=== PATIENT | male | born 1960 | race Caucasian/White ===

== ENCOUNTER 2016-04-01 10:56 | Inpatient (IN) | payer OTHER ==
[~2016-04-01] VITALS: Ht 165.1 cm; Wt 61.8 kg
[~2016-04-01 10:56] MED LIST: FLOMAX; NEXIUM
[2016-04-01 11:46] VITALS: Ht 165.1 cm; Wt 61.8 kg
[2016-04-01] MEDS ORDERED: PROPOFOL 20 ML ONE ×2 (12:13→13:11)
[2016-04-01] MEDS ORDERED: LIDOCAINE 2% (SDV) 5 ML INJ ONE (12:13)
[2016-04-01] MEDS ORDERED: MIDAZOLAM 1 MG/ML 2 ML INJ ONE (12:13)
[2016-04-01 12:21] VITALS: BP 104/70; PULSE 68; RESP 18
[2016-04-01 13:39] VITALS: BP 111/63; RESP 20
[2016-04-01] MEDS ORDERED: DEXTROSE 5%-0.45% NACL 1,000 ML IV SCH (14:27)
[2016-04-01] MEDS ORDERED: ACETAMINOPHEN 325 MG TAB PO PRN ×2 (14:30→17:30)
[2016-04-01] MEDS ORDERED: ONDANSETRON 4 MG INJ IV PRN (14:30)
[2016-04-01] MEDS ORDERED: NACL 0.9% 3 ML SYG IV SCH (14:30)
[2016-04-01] MEDS ORDERED: ACETAMINOPHEN 650 MG SUPP PR PRN (14:30)
--- NOTE | 2016-04-01 14:32 | QN ---
Documentation Comment S/P EGD MALNUTRITION PUD WT LOSS PLAN PER ORDER LYNETTE YANEZ MD Apr 01, 2016 14:32
--- NOTE | 2016-04-01 16:06 | HP ---
DATE OF ADMISSION: 04/01/2016 HISTORY OF PRESENT ILLNESS: Mr. Heath is a young male who has a history of dyspepsia, who presen mj through the GI lab after an EGD. The patient had peptic ulcer disease, gastric outlet possible obstruction, and the patient was instructed to be admitted per Dr. Easley. The patient denies any hematemesis or melena. Complaining of weight loss, poor appetite. PAST MEDICAL HISTORY: Negative for diabetes or hypertension. ALLERGIES: NEGATIVE. FAMILY HISTORY: Negative. SOCIAL HISTORY: Positive for smoking. Ex-ETOH user. MEDICATIONS AT HOME: Stomach medicine, does not know the name. REVIEW OF SYSTEMS: HEENT: Unremarkable. RESPIRATORY: Unremarkable. CARDIOVASCULAR: Unremarkable. ABDOMEN: As mentioned above. EXTREMITIES: Unremarkable. CENTRAL NERVOUS SYSTEM: Unremarkable. PHYSICAL EXAMINATION: GENERAL: Pale looking male, awake, alert. VITAL SIGNS: Stable. HEAD: Atraumatic, normocephalic. Pupils are equal, reactive to light. NECK: Supple. No JVD. LUNGS: Clear. CARDIOVASCULAR: S1, S2 normal. ABDOMEN: Soft, nontender. Bowel sounds present. No palpable mass or hepatosplenomegaly. No guard ing or rebound tenderness. EXTREMITIES: There is no cyanosis, clubbing, or edema. CENTRAL NERVOUS SYSTEM: The patient is awake, alert. No deficits. IMPRESSION: The patient has: 1. Peptic ulcer disease. 2. Gastric outlet obstruction. 3. Rule out malignancy. 4. Malnutrition. 5. Status post EGD and colonoscopy. 6. Anemia. PLAN: Admit the patient. IV fluid and PPI. CT of the abdomen. GI followup. Further recommendati ons will be made. Dictated By: LYNETTE YANEZ MD BS/NTS Conf#: [id number] DID#: [id number]
[2016-04-01 16:30] VITALS: BP 162/79; PULSE 63; RESP 18
[2016-04-01 16:58] LABS: BASOPHIL # 0.1 10^3/ul (0.0-0.1); BASOPHILS % 0.7 % (0.0-2.0); EOSINOPHILS # 0.3 10^3/ul (0.0-0.5); EOSINOPHILS % 3.4 % (0.0-7.0); HEMATOCRIT 39.4 % (42.0-52.0); HEMOGLOBIN 13.2 g/dl (14.0-18.0); LYMPHOCYTES # 3.4 10^3/ul (0.8-2.9); LYMPHOCYTES % 37.5 % (15.0-51.0); MEAN CORPUSCULAR HEMOGLOBIN 30.6 pg (29.0-33.0); MEAN CORPUSCULAR HGB CONC 33.6 g/dl (32.0-37.0); MEAN CORPUSCULAR VOLUME 91.2 fl (82.0-101.0); MEAN PLATELET VOLUME 8.6 fl (7.4-10.4); MONOCYTE # 0.9 10^3/ul (0.3-0.9); MONOCYTES % 9.9 % (0.0-11.0); NEUTROPHIL # 4.4 10^3/ul (1.6-7.5); NEUTROPHILS % 48.5 % (39.0-77.0); PLATELET COUNT 280 10^3/UL (140-440); RED BLOOD COUNT 4.33 10^6/ul (4.70-6.10); RED CELL DISTRIBUTION WIDTH 13.5 % (11.5-14.5)
[2016-04-01 17:01] LABS: CONDITION 1
[2016-04-01 17:08] LABS: ALBUMIN 3.7 g/dl (3.3-4.9); POTASSIUM 4.6 mmol/L (3.5-5.1)
[2016-04-01 17:10] LABS: CREATININE 0.77 mg/dl (0.61-1.24)
[2016-04-01 17:11] LABS: ALBUMIN/GLOBULIN RATIO 1.05; BILIRUBIN,INDIRECT 0.2 mg/dl (0-1.1); BILIRUBIN,TOTAL 0.2 mg/dl (0.2-1.3); CALCIUM 9.3 mg/dl (8.4-10.2); TOTAL PROTEIN 7.2 g/dl (6.1-8.1)
[2016-04-01] MEDS: morphine 2 MG INJ IV PRN (17:37)
[2016-04-01] MEDS: DEXTROSE 5%-0.9% NACL 1,000 ML IV SCH (17:41)
[2016-04-01] MEDS ORDERED: SOD CHLORIDE 0.9% 100 ML ONE (17:48)
[2016-04-01] MEDS ORDERED: IOHEXOL 300MG/ML 150 ML BTL ONE (17:48)
--- NOTE | 2016-04-01 18:23 | RADRPT ---
PROCEDURE: CT Abdomen and Pelvis with contrast. CLINICAL INDICATION: Abdominal pain TECHNIQUE: CT scan of the abdomen and pelvis with contrast was performed on a multidetector high-r esolution CT scanner. Coronal and sagittal reformatted images were obtained from the axial source im ages. Images were reviewed on a high-resolution PACS workstation. 80 cc of Isovue 300 iodinated cont rast was administered intravenously without reported complication. The total exam CTDI equals 7 mGy and the total exam DLP equals 397 mGy-cm. One or more of the following dose reduction techniques w ere used: Automated exposure control, Adjustment of the mA and/or kV according to patient size, and/ or use of iterative reconstruction technique. COMPARISON: Correlation upper GI series 01/25/2016 FINDINGS: The lung bases are clear. Distension of the stomach with focal narrowing at the gastric antrum/pylorus. No focal hepatic mass is identified. There is mild intrahepatic biliary dilatation. The caliber of the common bile duct at the pancreatic head is within normal limits. Numerous prominent gastrohepat ic and peripancreatic lymph nodes are seen. No focal pericholecystic inflammatory changes. No hydronephrosis. No obstructing renal stone. No small bowel obstruction. Normal-caliber appendix. No significant retroperitoneal lymphadenopathy or evidence of pneumoperitoneum. Small amount of lower abdominal ascites seen. Aortoiliac atherosclerosis. Indeterminate sclerotic changes to the superior end plates of the lumbar spine are seen most notably at L2. IMPRESSION: Distension of the stomach with focal narrowing at the gastric antrum/pylorus. This could be related to pylorospasm or gastritis, however, an underlying mass lesion cannot be excluded. Recommend correl ation with endoscopy. Numerous prominent gastrohepatic and peripancreatic lymph nodes may be reactive or may represent nod al spread of disease. Sclerotic changes to the superior end plates of the lumbar spine are seen most notably at L2. Small amount of lower abdominal ascites. Mild intrahepatic biliary dilatation with normal tapering of the common bile duct. Consider correla tion with bilirbuin values. RPTAT: AA .Valentino Li MD, Date Time Electronically viewed and signed by .Valentino Li MD, on 04/01/2016 18:22 .T/
[2016-04-01 19:23] VITALS: BP 121/78; RESP 19
[2016-04-01 23:43] VITALS: BP 116/57; RESP 19
[2016-04-02] MEDS: DEXTROSE 5%-0.9% NACL 1,000 ML IV SCH ×3 (03:00→17:33)
[2016-04-02] MEDS: morphine 2 MG INJ IV PRN ×4 (05:01→20:42)
[2016-04-02] MEDS: PANTOPRAZOLE 40 MG INJ IV SCH (05:23)
--- NOTE | 2016-04-02 05:36 | GILP ---
DATE OF PROCEDURE: 04/01/2016 PREOPERATIVE DIAGNOSIS: Severe abdominal pain with severe weight loss, nausea, vomiting, and occult bleeding. PROCEDURE DONE: Esophagogastroduodenoscopy and biopsy. ANESTHESIOLOGIST: Dr. Alejandrina Yusuf POSTOPERATIVE DIAGNOSIS: 1. Retained food particles in the stomach. 2. Two large ulcers instructing the prepyloric area with marked edema and easy friability; infiltrating CA suspected. DESCRIPTION OF THE PROCEDURE: The patient was put in left lateral decubitus after obtaining informed consent, was sedated, monitored by the anesthesiologist. We very carefully advanced an Olympus video upper endoscope into the esophagus, stomach, and entered only up to the pylorus due to blockade with 2 large gastric ulcers and retained food particles in the stomach. These ulcers were almost 2 x 1.5 cm, two of them obstructing at the pyloric channel area in the prepyloric area. With the everted margin friable and deep ulcers, it looks like a CA of the stomach. Biopsies were done. Unable to enter the duodenum due to retained food particles and fundus could not be examined. Examination of esophagus was unremarkable. Dear Dr. Chuy Choudhury: The patient has gastric outlet obstruction with 2 large ulcers, possibly even CA. I recommend admission and TPN because he is losing weight. Consider aggressive PPI. Await for biopsy report. He may need endoscopic ultrasound prior to surgery. Meanwhile, a CAT scan will be requested and I may consider surgical consult also. Dictated By: MICHELLE VITALE Conf#: [id number] DID#: [id number] CC: Chuy Choudhury;*EndCC* MTDD
--- NOTE | 2016-04-02 05:40 | GILP ---
DATE OF PROCEDURE: PREOPERATIVE DIAGNOSIS: Weight loss, anemia, and abdominal pain. Upper endoscopy showed possible ga stric CA with 2 ulcers now proceeding with colonoscopy. POSTOPERATIVE DIAGNOSIS: Four small polyps in the rectum, biopsied. They are benign looking. DESCRIPTION OF PROCEDURE: The patient was put in the left lateral decubitus after obtaining informe d consent after EGD. Monitoring and continued sedation was done by Dr. Alejandrina Yusuf. Rectal exam done which was unremarkable. An Olympus video colonoscope was advanced all the way to t he cecum. Ileocecal valve, cecum and appendiceal opening identified. Photography done. Cecum, asc ending colon, transverse colon normal. Descending colon and sigmoid colon, very few diverticula in the rectum. Four small polyps, hyperplastic type noted. These were biopsied and removed and sent t o histopathology. Then the scope was withdrawn. Patient had no complication. Dear Dr. Chuy Choudhury: Because of his weight loss, gastric outlet obstruction, suspected CA, I wou ld recommend TPN and admit him while we are staging him with CT scan. Recommend surgical opinion a nd endoscopic ultrasound prior to surgery. Dictated By: MICHELLE VITALE Conf#: [id number] DID#: [id number] CC: Chuy Choudhury;*EndCC*
[2016-04-02] MEDS ORDERED: PANTOPRAZOLE 40 MG INJ IV SCH (06:00)
[2016-04-02 07:32] VITALS: BP 134/80; RESP 16
--- NOTE | 2016-04-02 19:07 | PN ---
Date/Time of Note Date/Time of Note DATE: 04/02/16 TIME: 19:06 Assessment/Plan VTE Prophylaxis VTE Prophylaxis Intervention: other Lines/Catheters IV [facility] Type [facility] Peripheral IV Urinary Cath still in place: No Assessment/Plan Chief Complaint/Hosp Course IMPRESSION: The patient has: 1. Peptic ulcer disease. 2. Gastric outlet obstruction. 3. Rule out malignancy. 4. Malnutrition. 5. Status post EGD and colonoscopy. 6. Anemia. plan dr wall called Problems: Subjective 24 Hr Interval Summary Respiratory: no complaints Cardiovascular: no complaints Gastrointestinal: decreased appetite, No nausea Exam/Review of Systems Vital Signs Vitals Vital Signs Date Time Temp Pulse Resp B/P Pulse Ox O2 Delivery O2 Flow Rate FiO2 04/02/16 07:32 98.2 79 16 134/80 98 04/01/16 16:30 Room Air Intake and Output 04/01/16 04/01/16 04/02/16 15:00 23:00 07:00 Intake Total 1680 ml Balance 1680 ml Exam Neck: supple Respiratory: clear to auscultation Cardiovascular: regular rate and rhythm Gastrointestinal: soft Musculoskeletal: nl extremities to inspection Extremities: normal pulses Results Result Diagram: 04/01/16 1645 04/01/16 1645 Medications Medications Current Medications Ondansetron HCl (Zofran Inj) 4 mg Q6H PRN IV NAUSEA AND/OR VOMITING; Start at 14:30 Acetaminophen 650 mg 650 mg Q6H PRN [place] PAIN LEVEL 1-3 OR FEVER; Start 04/01/16 at 14:30 Dextrose/Sodium Chloride (D5-NS) 1,000 ml @ 100 mls/hr Q10H IV Last administered on 04/02/16 17:33; Admin Dose 100 MLS/HR; Start 04/01/16 at 17:30 Pantoprazole (Protonix Iv) 40 mg DAILY@06 IV Last administered on 04/02/16 05: 23; Admin Dose 40 MG; Start 04/02/16 at 06:00 Acetaminophen (Tylenol Tab) 650 mg Q6H PRN PO PAIN AND OR ELEVATED TEMP; Start 04/01/16 at 17:30 Morphine Sulfate (morphine) 2 mg Q4H PRN IV PAIN Last administered on 15:48; Admin Dose 2 MG; Start 04/01/16 at 17:30 LYNETTE YANEZ MD Apr 02, 2016 19:07
[2016-04-02 19:10] VITALS: BP 135/74; RESP 20
[2016-04-03] MEDS: morphine 2 MG INJ IV PRN ×4 (03:52→20:55)
[2016-04-03] MEDS: DEXTROSE 5%-0.9% NACL 1,000 ML IV SCH ×2 (03:54→15:14)
[2016-04-03] MEDS: PANTOPRAZOLE 40 MG INJ IV SCH (05:42)
[2016-04-03 07:53] VITALS: BP 110/77; RESP 18
--- NOTE | 2016-04-03 16:05 | PN ---
Date/Time of Note Date/Time of Note DATE: 04/03/16 TIME: 16:04 Assessment/Plan VTE Prophylaxis VTE Prophylaxis Intervention: other Lines/Catheters IV [facility] Type (from [facility]): Peripheral IV Urinary Cath still in place: No Assessment/Plan Chief Complaint/Hosp Course IMPRESSION: The patient has: 1. Peptic ulcer disease. 2. Gastric outlet obstruction. 3. Rule out malignancy. 4. Malnutrition. 5. Status post EGD and colonoscopy. 6. Anemia. plan dr wall TO F/U PO DIET Problems: Subjective 24 Hr Interval Summary Respiratory: no complaints Cardiovascular: no complaints Exam/Review of Systems Vital Signs Vitals Vital Signs Date Time Temp Pulse Resp B/P Pulse Ox O2 Delivery O2 Flow Rate FiO2 04/03/16 07:53 98.0 61 18 110/77 98 04/01/16 16:30 Room Air Intake and Output 04/02/16 04/02/16 04/03/16 15:00 23:00 07:00 Intake Total 2140 ml 1700 ml Balance 2140 ml 1700 ml Exam Neck: supple Respiratory: clear to auscultation Cardiovascular: regular rate and rhythm Gastrointestinal: soft Results Result Diagram: 04/01/16 1645 04/01/16 1645 Medications Medications Current Medications Ondansetron HCl (Zofran Inj) 4 mg Q6H PRN IV NAUSEA AND/OR VOMITING Last administered on 04/03/16 12:21; Admin Dose 4 MG; Start 04/01/16 at 14:30 Acetaminophen 650 mg 650 mg Q6H PRN [place] PAIN LEVEL 1-3 OR FEVER; Start 04/01/16 at 14:30 Dextrose/Sodium Chloride (D5-NS) 1,000 ml @ 100 mls/hr Q10H IV Last administered on 04/03/16 15:14; Admin Dose 100 MLS/HR; Start 04/01/16 at 17:30 Pantoprazole (Protonix Iv) 40 mg DAILY@06 IV Last administered on 04/03/16 05: 42; Admin Dose 40 MG; Start 04/02/16 at 06:00 Acetaminophen (Tylenol Tab) 650 mg Q6H PRN PO PAIN AND OR ELEVATED TEMP; Start 04/01/16 at 17:30 Morphine Sulfate (morphine) 2 mg Q4H PRN IV PAIN Last administered on 12:21; Admin Dose 2 MG; Start 04/01/16 at 17:30 LYNETTE YANEZ MD Apr 03, 2016 16:05
[2016-04-03 19:41] VITALS: BP 124/73; RESP 20
[2016-04-04] MEDS: DEXTROSE 5%-0.9% NACL 1,000 ML IV SCH ×2 (01:30→14:34)
[2016-04-04] MEDS: morphine 2 MG INJ IV PRN ×2 (01:35→07:06)
[2016-04-04] MEDS: PANTOPRAZOLE 40 MG INJ IV SCH (05:53)
[2016-04-04 08:30] VITALS: BP 104/60; RESP 18
--- NOTE | 2016-04-04 16:35 | CONS ---
Date/Time of Note Date/Time of Note DATE: 04/04/16 TIME: 16:30 Assessment/Plan Assessment/Plan Chief Complaint/Hosp Course 55 yo male who presents with gastric outlet obstruction who now has evidence of gastric adenocarcinoma -proceed with surgery. will likely need partial gastrectomy -will need chemo/ rads postop per Cha regimen -f/u path -out patient PET CT Problems: Consultation Date/Type/Reason Admit Date/Time Apr 01, 2016 at 14:48 Date of Consultation: Apr 04, 2016 Type of Consultation: oncology Reason for Consultation gastric cancer Referring Provider: LYNETTE YANEZ Hx of Present Illness 55 yo male with history of dyspepsia, who presented through the GI lab after an EGD. The patient had peptic ulcer disease, gastric outlet possible obstruction , and the patient was instructed to be admitted per Dr. Easley. The patient denies any hematemesis or melena. Complaining of weight loss, poor appetite. EGD revealed gastric outlet obstruction with 2 large ulcers. Prelilm path is consistent with gastric adenocarcinoma. Respiratory: no complaints Cardiovascular: no complaints Gastrointestinal: decreased appetite, No nausea Genitourinary: no complaints Musculoskeletal: no complaints Skin: no complaints Neurologic: no complaints Endocrine: no complaints Past Medical History Medical History: no pertinent history Past Surgical History Past Surgical Hx: no surgical history Family History Significant Family History: other Social History Smoking Status: Current every day smoker Drug Use: none Exam/Review of Systems Vital Signs Vitals Vital Signs Date Time Temp Pulse Resp B/P Pulse Ox O2 Delivery O2 Flow Rate FiO2 04/04/16 08:30 97.8 60 18 104/60 93 04/01/16 16:30 Room Air Intake and Output 04/03/16 04/03/16 04/04/16 15:00 23:00 07:00 Intake Total 2020 ml 1920 ml Output Total 800 ml Balance 2020 ml 1120 ml Exam Constitutional: alert, oriented Psych: no complaints Head: atraumatic, normocephalic Eyes: nl conjunctiva ENMT: nl external ears & nose, nl lips & teeth Neck: non-tender, supple Respiratory: clear to auscultation, normal air movement Cardiovascular: nl pulses, regular rate and rhythm Gastrointestinal: soft Musculoskeletal: nl extremities to inspection, nl gait and stance Extremities: normal pulses Results Result Diagram: 04/01/16 1645 04/01/16 1645 Medications Medications Current Medications Ondansetron HCl (Zofran Inj) 4 mg Q6H PRN IV NAUSEA AND/OR VOMITING Last administered on 04/03/16 12:21; Admin Dose 4 MG; Start 04/01/16 at 14:30 Acetaminophen 650 mg 650 mg Q6H PRN [place] PAIN LEVEL 1-3 OR FEVER; Start 04/01/16 at 14:30 Dextrose/Sodium Chloride (D5-NS) 1,000 ml @ 100 mls/hr Q10H IV Last administered on 04/04/16 01:30; Admin Dose 100 MLS/HR; Start 04/01/16 at 17:30 Pantoprazole (Protonix Iv) 40 mg DAILY@06 IV Last administered on 04/04/16 05: 53; Admin Dose 40 MG; Start 04/02/16 at 06:00 Acetaminophen (Tylenol Tab) 650 mg Q6H PRN PO PAIN AND OR ELEVATED TEMP; Start 04/01/16 at 17:30 Morphine Sulfate (morphine) 2 mg Q4H PRN IV PAIN Last administered on 07:06; Admin Dose 2 MG; Start 04/01/16 at 17:30 SUZY BOWENS M.D. Apr 04, 2016 16:35
--- NOTE | 2016-04-04 22:07 | PN ---
DATE: 04/04/[address] Sin Yanez and Dr. Alberto Choudhury: This 55-year-old male was diagnosed to have an obstructing ulcerated mass at the prepyloric area. U gil biopsy, it showed adenocarcinoma. As it was obstructing, we requested a surgical opinion. Dr. Witt saw the patient and he is planning to do the surgery as outpatient, as the patient is intend ing also to go home, to stage further with endoscopic ultrasound. That particular scope is not avai lable at this institution. Thus, I request an authorization for approval to a different center prio r to surgery. Also, oncological opinion may be entertained in between. I have explained to the family in detail. The patient's and his sister were present. They ask ed many questions. I have answered all of them to the best of my knowledge. I have advised that it is best for him to go for surgery, as it is almost obstructing lesion. It may not heal, although _ ___ Nexium may help, but with adenocarcinoma being present, it may not. I also recommend, because o f his weight loss, to increase his food intake like Boost, instant breakfast, also protein shakes. Follow up as outpatient within [address] Witt and also my office will be in touch with him as soon as he is approved for endoscopic ultrasound. Dr. Sin Yanez, also may be requesting oncol ogy opinion on this patient. See the CAT scan reports also. I have spoken with the pathologist, Dr Deneen Rose. The patient's family wants another opinion, which I have no objection, I have told them. Dictated By: MICHELLE VITALE Conf#: [id number] DID#: [id number] CC: SIN YANEZ MD; Alberto Choudhury;*EndCC*
--- NOTE | 2016-04-04 22:56 | QN ---
Documentation Comment [id number] LYNETTE YANEZ MD Apr 04, 2016 22:55
--- NOTE | 2016-04-05 02:25 | PN ---
Date/Time of Note Date/Time of Note DATE: 04/03/16 TIME: 10:14 Assessment/Plan Lines/Catheters IV Catheter Type (from [facility]): Saline Lock Diaz in Place (from [facility]): No Assessment/Plan Chief Complaint/Hosp Course 1. Prepyloric large ulcerations with PUD concerning for malignancy. Bx obtained & pending. -await path -ppi/carafate -liquid diet 2. Unintentional weight loss concerning for malignancy 2nd above -nutritional optimization -treatment & w/u as above 3. Anemia 2nd above -as above 4. Smoker, hx etoh use, current drug use -highly encouraged to stop use of noxious substances 5. Abdominal (gastro-hepatic & eliot-pancreatic) lymphadenopathy 2nd to above -w/u & tx as above -if this is a malignancy, pt wud need a PET scan & endoscopic US & eventually wud benefit from demar-adjuvant chemo tx followed by distal gastrectomy Thank you, Late entry 04/03 Dictation # [id number] Problems: Subjective 24 Hr Interval Summary No n/v. No f/c. No cp/so. No cough. No laurent/dizziness/visual or neuro changes. No pyuria. No bloating. Wants to eat more and go home. Bowel function. Exam/Review of Systems Vital Signs Vitals Vital Signs Date Time Temp Pulse Resp B/P Pulse Ox O2 Delivery O2 Flow Rate FiO2 04/04/16 08:30 97.8 60 18 104/60 93 04/01/16 16:30 Room Air Intake and Output 04/04/16 04/04/16 04/05/16 15:00 23:00 07:00 Output Total 440 ml Balance -440 ml Exam Constitutional: alert, oriented, No distress Psych: nl mood/affect, No anxiety Head: atraumatic, normocephalic Eyes: EOMI, PERRL, nl conjunctiva, No icteric ENMT: mucosa pink and moist, nl external ears & nose Neck: non-tender, supple Respiratory: normal air movement, No congested cough, No labored breathing Cardiovascular: regular rate and rhythm, No edema Gastrointestinal: non-tender, soft, No distended, No rebound or guarding Musculoskeletal: nl extremities to inspection, nl gait and stance, No joint tenderness Extremities: normal pulses, No calf tenderness Neurological: nl mental status, nl speech, nl strength Skin: nl turgor, No diaphoresis, No rash or lesions Lymph: nl lymph nodes Results Result Diagram: 04/01/16 1645 04/01/16 1645 RICK JADE MD Apr 05, 2016 02:24
--- NOTE | 2016-04-05 03:37 | PN ---
Date/Time of Note Date/Time of Note DATE: 04/04/16 TIME: 15:32 Assessment/Plan Lines/Catheters IV Catheter Type (from [facility] [place]): Saline Lock Diaz in Place (from [facility] [place]): No Assessment/Plan Chief Complaint/Hosp Course 1. Prepyloric large ulcerations with malignancy proven on bx -ppi/carafate -liquid diet --PET scan & endoscopic US as outpt > eventually wud benefit from demar-adjuvant chemo tx followed by distal gastrectomy. Patient is going home. 2. Unintentional weight loss 2nd malignancy -nutritional optimization -treatment & w/u as above 3. Anemia 2nd above -as above 4. Smoker, hx etoh use, current drug use -highly encouraged to stop use of noxious substances 5. Abdominal (gastro-hepatic & eliot-pancreatic) lymphadenopathy 2nd to above -w/u & tx as above -PET scan & endoscopic US as outpt > eventually wud benefit from demar-adjuvant chemo tx followed by distal gastrectomy Thank you, Late entry 04/04 Problems: Subjective 24 Hr Interval Summary Path with carcinoma. No n/v. No f/c. No cp/so. No cough. No laurent/dizziness/ visual or neuro changes. No pyuria. No bloating. Wants to go home. Bowel function. Exam/Review of Systems Vital Signs Vitals Vital Signs Date Time Temp Pulse Resp B/P Pulse Ox O2 Delivery O2 Flow Rate FiO2 04/04/16 08:30 97.8 60 18 104/60 93 04/01/16 16:30 Room Air Intake and Output 04/04/16 04/04/16 04/05/16 15:00 23:00 07:00 Output Total 440 ml Balance -440 ml Exam Free Text/Dictation Constitutional: alert, oriented, No distress Psych: nl mood/affect, No anxiety Head: atraumatic, normocephalic Eyes: EOMI, PERRL, nl conjunctiva, No icteric ENMT: mucosa pink and moist, nl external ears & nose Neck: non-tender, supple Respiratory: normal air movement, No congested cough, No labored breathing Cardiovascular: regular rate and rhythm, No edema Gastrointestinal: non-tender, soft, No distended, No rebound or guarding Musculoskeletal: nl extremities to inspection, nl gait and stance, No joint tenderness Extremities: normal pulses, No calf tenderness Neurological: nl mental status, nl speech, nl strength Skin: nl turgor, No diaphoresis, No rash or lesions Lymph: nl lymph nodes Results Result Diagram: 04/01/16 1645 04/01/16 1645 RICK JADE MD Apr 05, 2016 03:36
--- NOTE | 2016-04-05 08:14 | CONS ---
DATE OF ADMISSION: 04/01/2016 DATE OF CONSULTATION: 04/02/2016 CONSULTATIONS: Surgical REFERRING PHYSICIAN: LYNETTE YANEZ MD OTHER PHYSICIAN INVOLVED: Lester Easley M.D. CHIEF COMPLAINT: 1. Partial gastric outlet obstruction. 2. Unintentional weight loss. 3. Two large prepyloric ulcers with marked edema, possible adenocarcinoma. 4. Anemia. HISTORY OF PRESENT ILLNESS: The patient is a 55-year-old male with history of peptic ulcer disease t hat has been persistent symptomatology and was referred by Dr. Easley for admission and further ev aluation. The patient has been losing weight unintentionally. He has poor appetite. He denies any nausea or vomiting, no melena, no hematochezia, and no hematemesis, no hemoptysis. No abnormal ma sses. No fevers or chills. Patient is a smoker and previous heavy drinking. He also uses heroin a t times. Patient underwent an EGD which identified retained food in the stomach with 2 large ulcers obstructing the prepyloric area with marked edema and friability suspecting infiltrating cancer. T he ulcers were almost 2 x 1.5 cm. The patient also had a colonoscopy and identified to have 4 small polyps in the rectum. Subsequent to those procedures, he was admitted for further care. Surgical consultation was obtained for further evaluation and treatment as well. PAST MEDICAL HISTORY: 1. Unintentional weight loss. 2. Peptic ulcer disease. 3. Two large prepyloric ulcerations. 4. Partial gastric outlet obstruction. 5. Anemia. 6. Rectal polyps. 7. Cigarette smoker. 8. Previous heavy alcohol drinker. 9. Drug use, heroin. 10. Gastrohepatic and peripancreatic lymphadenopathy. 11. Sclerotic changes of the superior endplate of the lumbar spine. 12. Abdominal ascites, small amount. PAST SURGICAL HISTORY: Denies. MEDICATIONS: As per MAR. ALLERGIES: As per chart. SOCIAL HISTORY: Smokes about 10 cigarettes per day for many years. Previous heavy alcohol use. Cu rrent drug use with heroin. Patient is . FAMILY HISTORY: Denies any history of cancer. REVIEW OF SYSTEMS: As per HPI. A 12-point review of systems negative as addressed above. PHYSICAL EXAMINATION: VITAL SIGNS: Temperature is 98.2, pulse 79, blood pressure 134/80, saturating 98%. GENERAL: No acute distress, pleasant. HEENT: Pupils equal, reactive. No scleral icterus. Mucous membranes are moist. NECK: Supple, no JVD. No crepitus. PULMONARY: Normal respiratory effort. No wheezing. HEART: S1, S2 present. ABDOMEN: Soft, nontender, no rebound, no guarding, no umbilical lymphadenopathy or lesions. EXTREMITIES: No edema. VASCULAR: Capillary refill is less than 2 seconds. NEUROLOGIC: Alert, oriented, moves all 4 extremities grossly. LYMPHATICS: No palpable cervical, supraclavicular, axillary or inguinal lymph nodes. LABORATORY DATA: WBC is 9, H and H 13/39, platelets 280, neutrophils 48%. Chemistry and LFTs are w ithin normal. Albumin is 3.7. RADIOGRAPHIC: CT abdomen and pelvic identified distention of the stomach with focal narrowing of th e gastric antrum/pylorus. This could be related to pylorospasm or gastritis however, an underlying mass lesion cannot be excluded. Numerous prominent gastrohepatic and peripancreatic lymph nodes may be reactive or may represent kai spread of disease. Sclerotic changes to the superior endplate o f lumbar spine are seen most notably at L2. Small amount of lower abdominal ascites. Mild intrahep atic biliary dilatation with normal tapering of the common bile duct. ASSESSMENT AND PLAN: Mr. Vin Heath is a 55-year-old male. 1. Pyloric large ulcerations with peptic ulcer disease concerning for malignancy. Biopsy were obta ined and are pending. We will await pathology. Continue PPIs and Carafate. Continue liquid diet. 2. Unintentional weight loss. Once again concerning for malignancy secondary to above. Encourage nutritional optimization and treatment. Workup as above. 3. Anemia secondary to above. Treatment as above. 4. Smoker. History of alcohol use and current drug use. The patient is highly encouraged to stop use of noxious substances. 5. Abdominal (gastrohepatic and peripancreatic) lymphadenopathy) secondary to #1. Workup and treat ment as above. If this is a malignancy, the patient would need a PET scan and endoscopic ultrasound and eventually would benefit from neoadjuvant chemotherapy followed by distal gastrectomy. Thank you very much for consulting me in this patient's care. Dictated By: RICK CABRERA/PRATIMA Conf#: [id number] DID#: [id number]
--- NOTE | 2016-04-05 11:42 | DS ---
DATE OF ADMISSION: 04/01/2016 DATE OF DISCHARGE: 04/04/2016 HOSPITAL COURSE: The patient is a 55-year-old male who was admitted after EGD showed the patient laurent d a gastric ulcer and mass. The patient's biopsy came back positive for adenocarcinoma. The patien t was seen by Dr. Babar Witt and in consultation, but patient did not want to wait for an y further plan and left the hospital against medical advice. DISCHARGE DIAGNOSES: At the time of the discharge, patient diagnoses includes: 1. Patient has adenocarcinoma, status post esophagogastroduodenoscopy and colonoscopy. 2. Gastric mass, ulcer, and gastritis. 3. The patient has anemia. DISPOSITION: The patient left the hospital against medical advice. Dictated By: LYNETTE WATKINS/NTS Conf#: [id number] DID#: [id number]
== END 2016-04-04 16:24 | disposition left against medical advice (07) | DRG 375 ==
LOC: GIL 10:56 → MS1 14:48 → GIL 15:38 → MS1 17:16
PROVIDERS: ADMIT Internal Medicine Nephrology; ATTEND Internal Medicine Nephrology
PROC: 0DB78ZX Excision of Stomach, Pylorus, Via Natural or Artificial Opening Endoscopic, Diagnostic (ICD-10-PCS; principal; 2016-04-02)
PROC: 0DBP8ZX Excision of Rectum, Via Natural or Artificial Opening Endoscopic, Diagnostic (ICD-10-PCS; 2016-04-02)
DX: C16.4 Malignant neoplasm of pylorus (principal); K31.1 Adult hypertrophic pyloric stenosis; E46 Unspecified protein-calorie malnutrition; K27.9 Peptic ulcer, site unspecified, unspecified as acute or chronic, without hemorrhage or perforation; D64.9 Anemia, unspecified; F10.21 Alcohol dependence, in remission; Z68.22 Body mass index [BMI] 22.0-22.9, adult; R63.4 Abnormal weight loss; Z72.0 Tobacco use; K62.1 Rectal polyp
CPT/HCPCS: 74177; 80053; 85025; 88305; 88312; C9113; J2250; J2270; J2405; J7042; Q9967

== ENCOUNTER 2016-05-09 10:09 | Inpatient (IN) | payer OTHER ==
[2016-05-06 14:09] VITALS: BMI 24.8
[~2016-05-09] VITALS: Ht 165.1 cm; Wt 64.2 kg
[2016-05-09] VITALS (29 sets, daily range): BP systolic 89–157; BP diastolic 62–92; PULSE 79–110; RESP 16–22; Ht 165.1 cm; Wt 64.2 kg
[~2016-05-09 10:09] MED LIST changes: -FLOMAX
[2016-05-09] MEDS ORDERED: SOD CHLORIDE 0.9% 1,000 ML IV SCH (11:30)
[2016-05-09] MEDS ORDERED: AMPICILLIN/SULB 3 GM/NS (PMX) 100 ML IVPB SCH (12:00)
--- NOTE | 2016-05-09 12:01 | RADRPT ---
PROCEDURE: XR Chest. CLINICAL INDICATION: Preoperative, gastric cancer TECHNIQUE: Single frontal view of the chest was obtained COMPARISON: None FINDINGS: The heart and mediastinum are within normal limits. The lungs are clear. There is no pleural effusion or pneumothorax. RPTAT: AA IMPRESSION: No acute disease. .Luis Colin MD, MD Date Time Electronically viewed and signed by .Luis Colin MD, on 05/09/2016 12:00 .S/
[2016-05-09 12:09] LABS: BASOPHILS % 0.5 % (0.0-2.0); EOSINOPHILS # 0.4 10^3/ul (0.0-0.5); EOSINOPHILS % 4.9 % (0.0-7.0); HEMATOCRIT 41.4 % (42.0-52.0); HEMOGLOBIN 13.7 g/dl (14.0-18.0); LYMPHOCYTES % 34.6 % (15.0-51.0); MEAN CORPUSCULAR HEMOGLOBIN 30.6 pg (29.0-33.0); MEAN CORPUSCULAR HGB CONC 33.2 g/dl (32.0-37.0); MEAN CORPUSCULAR VOLUME 92.3 fl (82.0-101.0); MEAN PLATELET VOLUME 10.1 fl (7.4-10.4); MONOCYTE # 0.9 10^3/ul (0.3-0.9); MONOCYTES % 10.1 % (0.0-11.0); NEUTROPHIL # 4.3 10^3/ul (1.6-7.5); NEUTROPHILS % 49.9 % (39.0-77.0); PLATELET COUNT 210 10^3/UL (140-440); RED BLOOD COUNT 4.49 10^6/ul (4.70-6.10); RED CELL DISTRIBUTION WIDTH 15.1 % (11.5-14.5); UNCORRECTED WBC 8.6 10^3/ul (4.8-10.8); WHITE BLOOD COUNT 8.6 10^3/ul (4.8-10.8)
[2016-05-09 12:10] LABS: CONDITION 1; LH ANALYZER COMMENTS 1
[2016-05-09 12:13] LABS: INR 0.99; PROTIME 13.1 Sec (12.2-14.2)
[2016-05-09 12:14] LABS: PARTIAL THROMBOPLASTIN TIME 30.9 Sec (25.0-35.0)
[2016-05-09 12:18] LABS: CREATININE 0.63 mg/dl (0.61-1.24); POTASSIUM 4.4 mmol/L (3.5-5.1)
[2016-05-09] MEDS ORDERED: ROCURONIUM 50 MG INJ ONE (14:08)
[2016-05-09] MEDS ORDERED: SUCCINYLCHOLINE CHLORIDE 100 MG/5 ML SYG IV ONE (14:08)
[2016-05-09] MEDS ORDERED: PROPOFOL 20 ML ONE (14:08)
[2016-05-09] MEDS ORDERED: ONDANSETRON 4 MG INJ ONE (14:09)
[2016-05-09] MEDS ORDERED: MIDAZOLAM 1 MG/ML 2 ML INJ ONE (14:09)
[2016-05-09] MEDS ORDERED: DEXAMETHASONE 4 MG/ML 1 ML INJ ONE (14:10)
[2016-05-09] MEDS ORDERED: LIDOCAINE 2% JELLY 5 ML ONE (14:22)
[2016-05-09] MEDS ORDERED: CEFAZOLIN 1 GM INJ ONE (14:32)
[2016-05-09] MEDS ORDERED: EPHEDrine SULFATE 50 MG/5 ML SYG IV PRN (15:30)
[2016-05-09] MEDS ORDERED: ONDANSETRON 4 MG INJ IV PRN (15:30)
[2016-05-09] MEDS ORDERED: HYDROmorphONE (0.2 MG/ML) 10ML SYG IV PRN ×2 (15:30)
[2016-05-09] MEDS ORDERED: ALBUTEROL 0.5% (NEB) 2.5 MG/0.5 ML AMP INH ONE (15:30)
[2016-05-09] MEDS ORDERED: MEPERIDINE 25 MG INJ IV PRN (15:30)
[2016-05-09] MEDS ORDERED: DIPHENHYDRAMINE 50 MG INJ IV PRN (15:30)
[2016-05-09] MEDS ORDERED: MIDAZOLAM 1 MG/ML 2 ML INJ IV PRN (15:30)
[2016-05-09] MEDS ORDERED: KETOROLAC 30 MG INJ IV ONE (15:30)
[2016-05-09] MEDS ORDERED: hydrALAzine 20 MG INJ IV PRN (15:30)
[2016-05-09] MEDS ORDERED: FENTAnyl 50 MCG/ML VIAL ONE (15:54)
[2016-05-09] MEDS ORDERED: GLYCOPYRROLATE 0.4 MG INJ ONE (16:17)
[2016-05-09] MEDS ORDERED: NEOSTIGMINE 3 MG/3 ML SYRINGE ONE (16:17)
[2016-05-09] MEDS ORDERED: hydrALAzine 20 MG INJ ONE (16:26)
[2016-05-09] MEDS ORDERED: ROPIVACAINE 0.5 % 30 ML VIAL ONE (16:34)
[2016-05-09] MEDS ORDERED: KETOROLAC 30 MG INJ ONE (16:35)
[2016-05-09] MEDS: HYDROmorphONE (0.2 MG/ML) 10ML SYG IV PRN ×3 (17:11→17:23)
[2016-05-09] MEDS: FENTAnyl 50 MCG/ML VIAL IV PRN ×4 (17:31→17:51)
--- NOTE | 2016-05-09 17:56 | OPR ---
DATE OF OPERATION: 05/09/2016 PREOPERATIVE DIAGNOSIS: Obstructing prepyloric gastric cancer. POSTOPERATIVE DIAGNOSIS: Obstructing prepyloric gastric cancer. OPERATION PERFORMED: Subtotal gastrectomy. ANESTHESIA: General. ANESTHESIOLOGIST: Quincy Castillo. SURGEON: Alexander Mixon MD LICENSED PLUMBER: Randall Rose MD INDICATIONS FOR PROCEDURE: The patient is a 55-year-old male who recently presented to my office wi th a diagnosis of a nearly obstructing pyloric cancer. He has lost several pounds of weight. He wa s counseled as to the need for surgery. Both he and his family were told that procedure would most likely be palliative due to the fact he was able to take any oral intake. They elected to proceed w the [facility] surgery. The patient consented and was scheduled for surgery. DESCRIPTION OF PROCEDURE: The patient was brought to the operating theater, placed under general en dotracheal tube anesthesia. The abdomen was shaved, prepped, and draped in usual sterile fashion. An upper midline incision was made from the left side of the xiphoid down around the left side of th e umbilicus. Subcutaneous tissue was dissected with cautery down to the anterior rectus sheath. Th e linea alba was incised and the abdomen was entered without difficulty. The fascial incision was e xtended for the length of the skin excision. The Bookwalter retractor was placed. Excellent exposu re was obtained. As obstructed, a very large prepyloric mass was identified. Mobilization of the s tomach then took place by entering the avascular plane between the greater omentum and the transvers e colon. In this fashion, the greater curvature was mobilized. Subsequently, the lesser sac was en tered and portions of the lesser sac were also divided using the LigaSure device. With the first pa rt of duodenum fully mobilized, the duodenum was transected using the contour TA stapler. Further m obilization of the stomach took place until suitable point of transection well above the antrum was identified. The stomach was then transected with JESISCA stapler. Specimen was removed and sent for pe rmanent pathologic analysis. Minimal bleeding of the staple line was controlled with cautery. The preparation for reanastomosis then took place. The ligament of Treitz was identified and a point ap proximately 35 cm beyond the ligament of Treitz, the jejunum was cleared of its mesentery and transe cted. A Esthela limb was then created by creating a jejunojejunostomy. This was done in standard fash ion by approximating the 2 appropriate pieces of bowel with 3-0 silk pop off sutures. Two enterotom ies were made and anastomosis was created with the JESSICA stapler. Staple line was inspected. Minimal bleeding was controlled with cautery. The anastomosis then completed with a TA stapler in a standa rd fashion. Attention was then directed to performing the gastrojejunostomy. The Esthela limb was brought in close approximation with the posterior aspect of the greater curvature, held in place with 2-0 silk sutur es. A gastrotomy and enterotomy was made. The anastomosis was then created with JESSICA stapler. Stap le line was inspected. Minimal bleeding was controlled with cautery. The NG tube was then brought through the anastomosis and the anastomosis was then completed with a TA stapler in a standard fashi on. Several reinforcing 2-0 silk sutures were placed to reinforce the anastomosis. At this point, the abdomen was irrigated. There was no evidence of ongoing bleeding. Lap, sponge, and instrument counts were correct. Bookwalter was removed and the abdomen was then closed with #1 looped PDS sutu res in running fashion and the skin was reapproximated with skin jana. The patient tolerated pro cedure well. The estimated blood loss was 250 mL. There were no complications and the patient was transported in stable condition to the recovery room. Dictated By: ALEXANDER MONTESINOS/PRATIMA Conf#: [id number] DID#: [id number]
[2016-05-09] MEDS: HYDROmorphONE 0.2 MG/ML PCA IV SCH ×2 (19:36→23:18)
[2016-05-09] MEDS: D5W-0.45 NACL + KCL 20 MEQ 1,000 ML IV SCH ×2 (19:37→19:58)
[2016-05-09] MEDS ORDERED: VITAMIN A & D 5 GM OINT PACKET TOP ONE (20:21)
[2016-05-10 00:01] VITALS: BP 112/62; PULSE 91; RESP 20
[2016-05-10 02:30] VITALS: BP 108/59; PULSE 87
[2016-05-10] MEDS: D5W-0.45 NACL + KCL 20 MEQ 1,000 ML IV SCH ×3 (02:33→16:07)
[2016-05-10] MEDS: HYDROmorphONE 0.2 MG/ML PCA IV SCH ×5 (04:15→22:10)
[2016-05-10] MEDS: PANTOPRAZOLE 40 MG INJ IV SCH (05:14)
[2016-05-10 05:23] VITALS: BP 110/61; PULSE 90
[2016-05-10 09:06] LABS: BASOPHILS % 0.3 % (0.0-2.0); EOSINOPHILS % 0.2 % (0.0-7.0); HEMATOCRIT 36.2 % (42.0-52.0); HEMOGLOBIN 12.1 g/dl (14.0-18.0); LYMPHOCYTES # 2.9 10^3/ul (0.8-2.9); LYMPHOCYTES % 18.3 % (15.0-51.0); MEAN CORPUSCULAR HGB CONC 33.6 g/dl (32.0-37.0); MEAN CORPUSCULAR VOLUME 92.5 fl (82.0-101.0); MEAN PLATELET VOLUME 9.9 fl (7.4-10.4); MONOCYTE # 2.4 10^3/ul (0.3-0.9); MONOCYTES % 15.1 % (0.0-11.0); NEUTROPHIL # 10.6 10^3/ul (1.6-7.5); NEUTROPHILS % 66.1 % (39.0-77.0); PLATELET COUNT 191 10^3/UL (140-440); RED BLOOD COUNT 3.91 10^6/ul (4.70-6.10); RED CELL DISTRIBUTION WIDTH 15.5 % (11.5-14.5)
[2016-05-10 09:18] LABS: CONDITION 1; LH ANALYZER COMMENTS 1
[2016-05-10 11:50] LABS: POTASSIUM 4.6 mmol/L (3.5-5.1)
[2016-05-10 11:51] LABS: INR 1.14; PROTIME 14.6 Sec (12.2-14.2); PT RATIO 1.1
[2016-05-10 11:52] LABS: CREATININE 0.69 mg/dl (0.61-1.24); PARTIAL THROMBOPLASTIN TIME 31.5 Sec (25.0-35.0)
[2016-05-10 11:53] LABS: CALCIUM 8.1 mg/dl (8.4-10.2)
[2016-05-10 12:00] VITALS: BP 125/74; PULSE 75
[2016-05-10] MEDS ORDERED: NALOXONE (0.4 MG/ML) INJ IV PRN (12:30)
--- NOTE | 2016-05-10 12:52 | HP ---
DATE OF ADMISSION: 05/09/2016 HISTORY OF PRESENT ILLNESS: The patient is a 55-year-old Sinhala male with difficulty taking food by mouth and subsequently lost significant amount of weight. The patient underwent a workup includi ng endoscopy with biopsy that revealed prepyloric cancer which was obstructing. The patient was lizzy luated by Dr. Mixon in general surgery consultation. Patient was brought to the hospital and underw ent subtotal gastrectomy for obstructing prepyloric gastric cancer. Postoperatively, the patient ex perienced significant pain, and patient was admitted for further evaluation and management to medica l/surgical floor. The patient currently is awake, alert, complains of abdominal pain. Denies nausea , vomiting, diarrhea. PAST MEDICAL HISTORY: Patient denies having any medical problem in the past except recently diagnos ed cancer. The patient denies diabetes, denies hypertension, denies any cardiac problems. PAST SURGICAL HISTORY: The patient denies having any surgeries in the past. FAMILY HISTORY: Noncontributory. SOCIAL HISTORY: Patient lives at home with his family. Patient smokes about 15 cigarettes per day, smoked for many years. Occasional alcohol use. Currently denies any alcohol use and denies any ill icit drug use. ALLERGIES: NO KNOWN ALLERGIES. HOME MEDICATION: Nexium. REVIEW OF SYSTEMS: A 12-point review of systems is negative unless what mentioned in the HPI. PHYSICAL ASSESSMENT GENERAL: Well-developed, well-nourished male. Currently is awake, alert. VITAL SIGNS: Temperature is 98.8, pulse is 90, blood pressure is 110/61, respiratory rate 20, oxyge n saturation 94% on room air. HEENT: Head is atraumatic, normocephalic. Pupils equal, round, reactive to light and accommodation . Oral mucosa is pink and moist. MUSCULOSKELETAL: The patient has an NG tube to low intermittent suctioning with serous drainage. NECK: Supple, no cervical lymphadenopathy, no thyromegaly. CHEST: Patient has rhonchi bilaterally. There are no wheezes noted. CARDIOVASCULAR: Normal S1, S2. No murmurs, gallops, clicks, rubs noted. ABDOMEN: Status post surgery with intact dressing. Bowel sounds are hypoactive. EXTREMITIES: No edema, clubbing, cyanosis. Pulses equal bilaterally 2+. SKIN: There is no rash, petechiae noted. NEUROLOGIC: Patient is awake, alert and oriented x4. No focal deficits noted. Motor strength 5/5 in all extremities. LABORATORY DATA: On admission CBC: White blood cells 8.6, hemoglobin 13.7, hematocrit 41.4, platel ets 210. Chemistry: Sodium is 142, potassium 4.4, chloride 103, carbon dioxide 27, anion gap 16, B UN is 11, creatinine 0.63, glucose 98, calcium is 9.0. PT is 13.1, INR is 0.929, APTT is 30.9. IMAGING: Chest x-ray is no acute disease. ASSESSMENT AND PLAN: Obstructing prepyloric gastric cancer. Status post subtotal gastrectomy. Cont inue patient on Dilaudid SHUTTLELESS LOOM WEAVER for pain. Continue Protonix IV and continue IV fluids. The patient re ceived postoperative antibiotics. Continue to monitor hemoglobin and hematocrit. Incentive spirome ter q.1h. while the patient is awake. We will obtain a chest x-ray for today, CBC and BMP for tomor row. Continue sequential compression device for deep venous thrombosis prophylaxis. Keep patient n .p.o. Further recommendations based on clinical course. Plan of care discussed with Dr. Mcnair. We will continue Zofran p.r.n. for nausea. Dictated By: ROGER DEAN WOOD FINISHER for EZEQUIEL MCNAIR MD SR/NTS Conf#: [id number] DID#: [id number]
--- NOTE | 2016-05-10 14:43 | RADRPT ---
PROCEDURE: XR Chest. CLINICAL INDICATION: Shortness of breath. TECHNIQUE: Single frontal view. COMPARISON: 05/09/2016. FINDINGS: There is a new nasogastric tube with the tip in the stomach. Midline vertical skin jana are pres ent in the abdomen. There is free air in the abdomen from the recent surgery. Mild atelectasis is present at the lung bases. The lungs are otherwise clear. The heart size is normal. There is no pleural effusion. There is no pneumothorax. IMPRESSION: 1. Recent abdominal surgery. 2. Nasogastric tube tip in the stomach. 3. Mild atelectasis at the lung bases. RPTAT: QQ .Alberto Benitez MD, MD Date Time Electronically viewed and signed by .Alberto Benitez MD, on 05/10/2016 14:42 .R/
[2016-05-10 16:08] VITALS: BP 136/65
--- NOTE | 2016-05-10 18:47 | PN ---
DATE: 05/10/2016 SUBJECTIVE: Complain of abdominal pain postop. OBJECTIVE: GENERAL: The patient is alert and awake and oriented. VITAL SIGNS: Temperature 98, respirations 18, heart rate 90, blood pressure 110 /61, saturation 94% to 99% on room air. ABDOMEN: Flat. Bowel sounds, absent. LOWER EXTREMITIES: No pitting edema. Sequential compression device is wrapped around and working. LABS: Today, WBC increased to 16,000 with 66% segmented neutrophils. Hemoglobin is 12, hematocrit 36. Chemistry: Potassium 4.6, sodium 139, BUN 14 , creatinine 0.69. NG tube is in place, but is not functioning. It is not draining anything so far. Since I know where it is located, in the remaining portion of the stomach, so it is not expected to drain that much. Will take it as it is at time being. It is connected to intermittent suction ASSESSMENT: Patient is moving toes ankles and knees. Diaz catheter is in place. Urine output 8 hours from 6:00 a.m. today until 3:00 p.m., 1200 mL. IV is running. WEB COMMUNICATIONS SPECIALIST is running with the morphine continuous dose 1.5 mg and demand 1.5 mg every 4 hours. The patient roughly receives 7.5 mg morphine every hour, but he still complains of pain. Postop day #1 with distal gastrectomy, subtotal gastrectomy, and Esthela-en-Y gastrojejunostomy. The patient so far is stable BUN and creatinine normal. Urine output is adequate. PLAN: Encourage patient to use incentive spirometry. Will check on the patient on a daily basis, and further decision will be made upon the course of the progression of the process of the postop. Dictated By: CANELO SCHRADER/PRATIMA Conf#: [id number] DID#: [id number] ALINA
[2016-05-10] MEDS: KETOROLAC 30 MG INJ IV PRN (20:14)
--- NOTE | 2016-05-10 20:24 | PN ---
Date/Time of Note Date/Time of Note DATE: 05/10/16 TIME: 20:21 Assessment/Plan VTE Prophylaxis VTE Prophylaxis Intervention: other Lines/Catheters IV Catheter Type (from Nrs): Peripheral IV Urinary Cath still in place: Yes Reason Cath still needed: other (indicate) Assessment/Plan Chief Complaint/Hosp Course S/P SUB TOTAL GASTRECTOMY GASTRIC CANCER PLAN PER SURGERY Problems: Subjective 24 Hr Interval Summary Eyes: no complaints ENT: no complaints Respiratory: no complaints Cardiovascular: no complaints Gastrointestinal: pain (+), No diarrhea, No nausea Genitourinary: no complaints Musculoskeletal: no complaints Skin: no complaints Neurologic: no complaints Endocrine: no complaints Lymphatic: no complaints Psychological: no complaints Exam/Review of Systems Vital Signs Vitals Vital Signs Date Time Temp Pulse Resp B/P Pulse Ox O2 Delivery O2 Flow Rate FiO2 05/10/16 16:57 18 05/10/16 16:08 98.0 136/65 99 Room Air 05/10/16 12:00 75 05/09/16 17:25 6.0 Intake and Output 05/09/16 05/09/16 05/10/16 15:00 23:00 07:00 Intake Total 1800 ml 1250 ml Output Total 550 ml 600 ml Balance 1250 ml 650 ml Exam Neck: supple Respiratory: clear to auscultation Cardiovascular: regular rate and rhythm Gastrointestinal: bowel sounds (mild), tender (+) Musculoskeletal: nl extremities to inspection Extremities: normal pulses Neurological: TEACHERS AIDE II-XII intact, nl mental status, nl speech, nl strength Skin: nl turgor Lymph: nl lymph nodes Results Result Diagram: 05/10/16 0738 05/10/16 1125 Results 24 hrs Laboratory Tests Test 05/10/16 07:38 05/10/16 11:25 Basophils # 0.0 Basophils % 0.3 Blood Morphology Comment Eosinophils # 0.0 Eosinophils % 0.2 Hematocrit 36.2 L Hemoglobin 12.1 L Lymphocytes # 2.9 Lymphocytes % 18.3 Mean Corpuscular Hemoglobin 31.0 Mean Corpuscular Hemoglobin Concent 33.6 Mean Corpuscular Volume 92.5 Mean Platelet Volume 9.9 Monocytes # 2.4 H Monocytes % 15.1 H Neutrophils # 10.6 H Neutrophils % 66.1 Nucleated Red Blood Cells # 0.0 Nucleated Red Blood Cells % 0.0 Platelet Count 191 Red Blood Count 3.91 L Red Cell Distribution Width 15.5 H White Blood Count 16.0 #H Activated Partial Thromboplast Time 31.5 Anion Gap 13 Blood Urea Nitrogen 14 Calcium Level 8.1 L Carbon Dioxide Level 27 Chloride Level 104 Creatinine 0.69 Glucose Level 125 INR International Normalized Ratio 1.14 Potassium Level 4.6 Prothrombin Time 14.6 H Prothrombin Time Ratio 1.1 Sodium Level 139 Medications Medications Current Medications Pantoprazole 40 mg 40 mg DAILY@06 IV Last administered on 05/10/16 05:14; Admin Dose 40 MG; Start 05/10/16 at 06:00 Potassium Chloride/Dextrose/ Sod Cl (D5-1/2ns + KCl 20 Meq) 1,000 ml @ 120 mls/ hr Q8H20M IV Last administered on 05/10/16 16:07; Admin Dose 120 MLS/HR; Start 05/09/16 at 13:18 Hydromorphone HCl (Dilaudid FINANCIAL CONSULTANT) 1.5 MG/HR CONTINUOUS RATE ... Q4PCA IV Last administered on 05/10/16 17:17; Admin Dose 6 MG; Start 05/09/16 at 19:30 Naloxone HCl (Narcan) 0.2 mg Q2M PRN IV DECREASED REPIRATORY RATE; Start at 12:30 Ketorolac Tromethamine (Toradol) 30 mg Q6H PRN IV PAIN Last administered on 20:14; Admin Dose 30 MG; Start 05/10/16 at 20:00; Stop 05/13/16 at 19:59 LYNETTE YANEZ MD May 10, 2016 20:23
[2016-05-10 20:42] VITALS: BP 112/61; RESP 20
[2016-05-11] MEDS: D5W-0.45 NACL + KCL 20 MEQ 1,000 ML IV SCH ×3 (00:46→18:19)
[2016-05-11] MEDS: KETOROLAC 30 MG INJ IV PRN ×4 (02:24→23:45)
[2016-05-11] MEDS: HYDROmorphONE 0.2 MG/ML PCA IV SCH ×6 (02:29→23:33)
[2016-05-11] MEDS: PANTOPRAZOLE 40 MG INJ IV SCH (06:03)
[2016-05-11 09:01] VITALS: BP 133/71; RESP 18
[2016-05-11 10:00] VITALS: PULSE 72
[2016-05-11 11:38] LABS: POTASSIUM 4.7 mmol/L (3.5-5.1)
[2016-05-11 11:41] LABS: CREATININE 0.75 mg/dl (0.61-1.24)
[2016-05-11 11:42] LABS: CALCIUM 8.6 mg/dl (8.4-10.2)
[2016-05-11 11:46] LABS: BASOPHILS % 0.1 % (0.0-2.0); EOSINOPHILS # 0.1 10^3/ul (0.0-0.5); EOSINOPHILS % 0.4 % (0.0-7.0); HEMOGLOBIN 12.7 g/dl (14.0-18.0); LYMPHOCYTES % 13.7 % (15.0-51.0); MEAN CORPUSCULAR HEMOGLOBIN 30.9 pg (29.0-33.0); MEAN CORPUSCULAR HGB CONC 33.5 g/dl (32.0-37.0); MEAN CORPUSCULAR VOLUME 92.3 fl (82.0-101.0); MEAN PLATELET VOLUME 10.2 fl (7.4-10.4); MONOCYTE # 1.6 10^3/ul (0.3-0.9); MONOCYTES % 10.9 % (0.0-11.0); NEUTROPHIL # 11.1 10^3/ul (1.6-7.5); NEUTROPHILS % 74.9 % (39.0-77.0); PLATELET COUNT 181 10^3/UL (140-440); RED BLOOD COUNT 4.11 10^6/ul (4.70-6.10); RED CELL DISTRIBUTION WIDTH 15.4 % (11.5-14.5); UNCORRECTED WBC 14.8 10^3/ul (4.8-10.8); WHITE BLOOD COUNT 14.8 10^3/ul (4.8-10.8)
[2016-05-11 11:48] LABS: INR 1.09; PROTIME 14.1 Sec (12.2-14.2); PT RATIO 1.1
[2016-05-11 11:51] LABS: PARTIAL THROMBOPLASTIN TIME 33.2 Sec (25.0-35.0)
[2016-05-11 11:56] LABS: CONDITION 1; LH ANALYZER COMMENTS 1
[2016-05-11] MEDS ORDERED: INFLUENZA VIRUS VACCINE 0.5 ML SYG IM* ONE (12:00)
--- NOTE | 2016-05-11 13:46 | PN ---
DATE: 05/11/2016 Postop day #2. SUBJECTIVE: Feels much better, has been out of bed, sitting in the chair, has been running a little bit of high fever. No bowel movement. OBJECTIVE: VITAL SIGNS: Temperature maximum up to 100.9, heart rate maximum up to 111, respiration 18, blood pressure 133/____, saturation 98% on room air. At the time of examination, Today temperature has been up to 100. LABORATORY DATA: WBC trending down to 14,800 with 74% segmented, hemoglobin and hematocrit are stable. Chemistry: Sodium, potassium, BUN and creatinine are stable. ABDOMEN: Soft. NG tube is draining slightly serosanguineous fluid. Diaz catheter is in place. Abdomen is soft. Bowel sounds are absent. LOWER EXTREMITIES: No pitting edema, no calf tenderness. ASSESSMENT: Patient is a 55-year-old male status post subtotal gastrectomy for cancer of the stomach, postop day #2, is doing very well following, is doing very well, V.S.stable. Urine is adequate. Kidney function is adequate. NG tube is draining a little bit, about 100 mL since yesterday. The abdomen is soft. The patient's pain is much better, under control, has been out of bed. PLAN: 1. Continue current care. 2. Encourage incentive spirometry. 3. Continues SCDs. 4. Encourage getting out of bed, sitting in the chair and probably walking around with the nurses. If he can tolerate walking around tomorrow, we can discontinue the Diaz. Dictated By: CANELO SCHRADER/PRATIMA Conf#: [id number] DID#: [id number] MTDD
[2016-05-11] MEDS: ACETAMINOPHEN 650 MG SUPP PR PRN (14:45)
--- NOTE | 2016-05-11 15:49 | RADRPT ---
Vent Rate: 61 bpm RR Interval: 0 msec WV Interval: 112 msec QRS Duration: 80 msec QT Interval: 390 msec QTC Interval: 392 msec P-R-T Emerson: 74 - 80 - 72 degrees Normal sinus rhythm Normal ECG Electronically Signed By: Dylan Mo [id number]
[2016-05-11 16:00] VITALS: PULSE 100
[2016-05-11 18:00] VITALS: PULSE 111
--- NOTE | 2016-05-11 18:32 | PN ---
Date/Time of Note Date/Time of Note DATE: 05/11/16 TIME: 18:30 Assessment/Plan VTE Prophylaxis VTE Prophylaxis Intervention: other Lines/Catheters IV Catheter Type (from Nrs): Saline Lock Urinary Cath still in place: Yes Reason Cath still needed: other (indicate) Assessment/Plan Chief Complaint/Hosp Course S/P SUB TOTAL GASTRECTOMY GASTRIC CANCER LEUCOCYTOSIS PLAN PER SURGERY CK LABS ANTIBIOTIC Problems: Subjective 24 Hr Interval Summary Respiratory: no complaints Cardiovascular: no complaints Gastrointestinal: pain (+) Genitourinary: no complaints Exam/Review of Systems Vital Signs Vitals Vital Signs Date Time Temp Pulse Resp B/P Pulse Ox O2 Delivery O2 Flow Rate FiO2 05/11/16 10:00 97.9 72 05/11/16 09:01 18 133/71 98 05/10/16 16:08 Room Air 05/09/16 17:25 6.0 Intake and Output 05/10/16 05/10/16 05/11/16 15:00 23:00 07:00 Intake Total 1200 ml 500 ml Output Total 1250 ml 2125 ml Balance -50 ml -1625 ml Exam Respiratory: clear to auscultation Cardiovascular: regular rate and rhythm Gastrointestinal: other (dressing+), soft Extremities: No edema Results Result Diagram: 05/11/16 1048 05/11/16 1048 Results 24 hrs Laboratory Tests Test 05/11/16 10:48 Activated Partial Thromboplast Time 33.2 Anion Gap 13 Basophils # 0.0 Basophils % 0.1 Blood Morphology Comment Blood Urea Nitrogen 11 Calcium Level 8.6 Carbon Dioxide Level 29 Chloride Level 100 Creatinine 0.75 Eosinophils # 0.1 Eosinophils % 0.4 Glucose Level 119 Hematocrit 38.0 L Hemoglobin 12.7 L INR International Normalized Ratio 1.09 Lymphocytes # 2.0 Lymphocytes % 13.7 L Mean Corpuscular Hemoglobin 30.9 Mean Corpuscular Hemoglobin Concent 33.5 Mean Corpuscular Volume 92.3 Mean Platelet Volume 10.2 Monocytes # 1.6 H Monocytes % 10.9 Neutrophils # 11.1 H Neutrophils % 74.9 Nucleated Red Blood Cells # 0.0 Nucleated Red Blood Cells % 0.0 Platelet Count 181 Potassium Level 4.7 Prothrombin Time 14.1 Prothrombin Time Ratio 1.1 Red Blood Count 4.11 L Red Cell Distribution Width 15.4 H Sodium Level 137 White Blood Count 14.8 H Medications Medications Current Medications Pantoprazole 40 mg 40 mg DAILY@06 IV Last administered on 05/11/16 06:03; Admin Dose 40 MG; Start 05/10/16 at 06:00 Potassium Chloride/Dextrose/ Sod Cl (D5-1/2ns + KCl 20 Meq) 1,000 ml @ 120 mls/ hr Q8H20M IV Last administered on 05/11/16 18:19; Admin Dose 120 MLS/HR; Start 05/09/16 at 13:18 Hydromorphone HCl (Dilaudid SECOND CHEF) 1.5 MG/HR CONTINUOUS RATE ... Q4PCA IV Last administered on 05/11/16 14:53; Admin Dose 6 MG; Start 05/09/16 at 19:30 Naloxone HCl (Narcan) 0.2 mg Q2M PRN IV DECREASED REPIRATORY RATE; Start at 12:30 Ketorolac Tromethamine (Toradol) 30 mg Q6H PRN IV PAIN Last administered on 18:19; Admin Dose 30 MG; Start 05/10/16 at 20:00; Stop 05/13/16 at 19:59 Acetaminophen (Tylenol Supp) 650 mg Q4H PRN WV PAIN OR TEMP ABOVE 38C Last administered on 05/11/16 14:45; Admin Dose 650 MG; Start 05/11/16 at 14:30 LYNETTE YANEZ MD May 11, 2016 18:32
[2016-05-11] MEDS: CEFTRIAXONE 1 GM/50 ML (PMX) 50 ML IVPB SCH (19:07)
[2016-05-11 19:24] LABS: ADD UMIC YES; URINE BILIRUBIN (Dip) NEGATIVE (NEGATIVE); URINE BLOOD (Dip) 2+ (NEGATIVE); URINE COLOR LT. YELLOW (YELLOW); URINE GLUCOSE (Dip) NEGATIVE (NEGATIVE); URINE KETONES (Dip) NEGATIVE (NEGATIVE); URINE LEUKOCYTE ESTERASE (Dip) NEGATIVE (NEGATIVE); URINE NITRITE (Dip) NEGATIVE (NEGATIVE); URINE TOTAL PROTEIN (Dip) NEGATIVE (NEGATIVE); URINE UROBILINOGEN (Dip) 0.2 E.U./dL (0.1-1.0)
[2016-05-11 19:37] LABS: BACTERIA,URINE FEW
[2016-05-11 20:52] VITALS: BP 99/57; RESP 18
[2016-05-12] MEDS: D5W-0.45 NACL + KCL 20 MEQ 1,000 ML IV SCH ×3 (02:52→21:08)
[2016-05-12] MEDS: HYDROmorphONE 0.2 MG/ML PCA IV SCH (03:20)
[2016-05-12] MEDS: PANTOPRAZOLE 40 MG INJ IV SCH (05:03)
[2016-05-12 05:51] LABS: EOSINOPHILS % 0.3 % (0.0-7.0); HEMATOCRIT 34.3 % (42.0-52.0); HEMOGLOBIN 11.4 g/dl (14.0-18.0); LYMPHOCYTES # 1.3 10^3/ul (0.8-2.9); LYMPHOCYTES % 10.9 % (15.0-51.0); MEAN CORPUSCULAR HEMOGLOBIN 30.7 pg (29.0-33.0); MEAN CORPUSCULAR HGB CONC 33.4 g/dl (32.0-37.0); MEAN CORPUSCULAR VOLUME 92.1 fl (82.0-101.0); MONOCYTE # 1.2 10^3/ul (0.3-0.9); MONOCYTES % 9.8 % (0.0-11.0); NEUTROPHIL # 9.8 10^3/ul (1.6-7.5); PLATELET COUNT 145 10^3/UL (140-440); RED BLOOD COUNT 3.73 10^6/ul (4.70-6.10); RED CELL DISTRIBUTION WIDTH 15.7 % (11.5-14.5); UNCORRECTED WBC 12.4 10^3/ul (4.8-10.8); WHITE BLOOD COUNT 12.4 10^3/ul (4.8-10.8)
[2016-05-12 06:03] LABS: ALBUMIN 2.9 g/dl (3.3-4.9); POTASSIUM 4.6 mmol/L (3.5-5.1)
[2016-05-12 06:05] LABS: CREATININE 0.73 mg/dl (0.61-1.24)
[2016-05-12 06:06] LABS: ALBUMIN/GLOBULIN RATIO 0.93; BILIRUBIN,INDIRECT 0.5 mg/dl (0-1.1); BILIRUBIN,TOTAL 0.5 mg/dl (0.2-1.3); CALCIUM 8.3 mg/dl (8.4-10.2)
[2016-05-12 06:39] LABS: CONDITION 1; LH ANALYZER COMMENTS 1
[2016-05-12] MEDS: morphine 1 MG/ML 30 ML (PCA) IV SCH ×3 (07:49→22:55)
[2016-05-12 08:43] VITALS: BP 115/69; RESP 20
[2016-05-12 10:00] VITALS: PULSE 112
[2016-05-12 10:06] LABS: BASOPHILS % 0.2 % (0.0-2.0); EOSINOPHILS % 0.3 % (0.0-7.0); HEMATOCRIT 33.4 % (42.0-52.0); HEMOGLOBIN 11.1 g/dl (14.0-18.0); LYMPHOCYTES # 1.4 10^3/ul (0.8-2.9); LYMPHOCYTES % 12.2 % (15.0-51.0); MEAN CORPUSCULAR HEMOGLOBIN 30.9 pg (29.0-33.0); MEAN CORPUSCULAR HGB CONC 33.2 g/dl (32.0-37.0); MEAN PLATELET VOLUME 11.1 fl (7.4-10.4); MONOCYTE # 1.3 10^3/ul (0.3-0.9); MONOCYTES % 11.5 % (0.0-11.0); NEUTROPHIL # 8.3 10^3/ul (1.6-7.5); NEUTROPHILS % 75.3 % (39.0-77.0); PLATELET COUNT 151 10^3/UL (140-415); RED BLOOD COUNT 3.59 10^6/ul (4.70-6.10); RED CELL DISTRIBUTION WIDTH 14.8 % (11.5-14.5)
[2016-05-12 10:17] LABS: INR 1.14; PROTIME 14.6 Sec (12.2-14.2); PT RATIO 1.1
[2016-05-12 10:18] LABS: PARTIAL THROMBOPLASTIN TIME 40.7 Sec (25.0-35.0)
[2016-05-12 10:19] LABS: POTASSIUM 4.3 mmol/L (3.5-5.1)
[2016-05-12 10:21] LABS: CREATININE 0.69 mg/dl (0.61-1.24)
[2016-05-12 10:22] LABS: CALCIUM 8.3 mg/dl (8.4-10.2)
[2016-05-12 17:30] VITALS: PULSE 100
[2016-05-12] MEDS: CEFTRIAXONE 1 GM/50 ML (PMX) 50 ML IVPB SCH (18:20)
[2016-05-12] MEDS: KETOROLAC 30 MG INJ IV PRN (18:21)
--- NOTE | 2016-05-12 18:32 | PN ---
DATE: 05/12/2016 Postop day #3. SUBJECTIVE: Feels better. No new complaint. Has not had any bowel movement and has not passed any gas. OBJECTIVE: VITAL SIGNS: Temperature 100.5, pulse rate 114, respirations 20, blood pressure 115/69, saturation 93% on room air ABDOMEN: Soft, tender on pressure. Bowel sounds are hypoactive. NG tube is in place draining sero sanguineous fluid. GENITOURINARY: Diaz catheter in place. Urine output is adequate. LABORATORY DATA: Today, WBC dropped to 11,000. Differential is 75% neutrophils, hemoglobin is stab le at 11.1, hematocrit 33.4. Chemistry is stable. BUN and creatinine are normal ASSESSMENT: Postop day #3, patient with subtotal gastrectomy and Esthela-en-Y anastomosis. The patien t is doing fine, stable, has been out of bed, walking around. Bowel function is not back yet. PLAN: 1. Discontinue Diaz tomorrow morning. 2. Encourage use of incentive spirometry. 3. Encourage walking more on the floor. 4. Actually, the patient has been running a temperature in the past [address] Cedeno, the primary care physician, has started the patient on Rocephin 1 gram IV q.24h., and I agree with that. Dictated By: CANELO KRAMER MD PS/PRATIMA Conf#: [id number] DID#: [id number]
[2016-05-12 20:24] VITALS: BP 102/66; RESP 20
--- NOTE | 2016-05-12 20:35 | PN ---
Date/Time of Note Date/Time of Note DATE: 05/12/16 TIME: 20:34 Assessment/Plan VTE Prophylaxis VTE Prophylaxis Intervention: other Lines/Catheters IV [facility]ter Type [facility]from [facility] Saline Lock Urinary Cath still in place: Yes Reason Cath still needed: other (indicate) Assessment/Plan Chief Complaint/Hosp Course S/P SUB TOTAL GASTRECTOMY GASTRIC CANCER LEUCOCYTOSIS better PLAN PER SURGERY CK LABS ANTIBIOTIC Problems: Subjective 24 Hr Interval Summary Cardiovascular: no complaints Gastrointestinal: no complaints Exam/Review of Systems Vital Signs Vitals Vital Signs Date Time Temp Pulse Resp B/P Pulse Ox O2 Delivery O2 Flow Rate FiO2 05/12/16 20:24 98.3 87 20 102/66 98 05/10/16 16:08 Room Air 05/09/16 17:25 6.0 Intake and Output 05/11/16 05/11/16 05/12/16 15:00 23:00 07:00 Intake Total 500 ml 1050 ml 360 ml Output Total 1000 ml 1800 ml Balance 500 ml 50 ml -1440 ml Exam Respiratory: clear to auscultation Cardiovascular: regular rate and rhythm Gastrointestinal: soft Musculoskeletal: nl extremities to inspection Results Result Diagram: 05/12/16 0935 05/12/16 0935 Results 24 hrs Laboratory Tests Test 05/12/16 05:04 05/12/16 09:35 Alanine Aminotransferase (ALT/SGPT) 30 Albumin 2.9 L Albumin/Globulin Ratio 0.93 Alkaline Phosphatase 82 Anion Gap 12 12 Aspartate Amino Transf (AST/SGOT) 29 Basophils # 0.0 0.0 Basophils % 0.0 0.2 Blood Morphology Comment Blood Urea Nitrogen 11 11 Calcium Level 8.3 L 8.3 L Carbon Dioxide Level 30 28 Chloride Level 101 101 Creatinine 0.73 0.69 Direct Bilirubin 0.00 Eosinophils # 0.0 0.0 Eosinophils % 0.3 0.3 Globulin 3.10 Glucose Level 122 127 Hematocrit 34.3 L 33.4 L Hemoglobin 11.4 L 11.1 L Indirect Bilirubin 0.5 Lymphocytes # 1.3 1.4 Lymphocytes % 10.9 L 12.2 L Mean Corpuscular Hemoglobin 30.7 30.9 Mean Corpuscular Hemoglobin Concent 33.4 33.2 Mean Corpuscular Volume 92.1 93.0 Mean Platelet Volume 10.0 11.1 H Monocytes # 1.2 H 1.3 H Monocytes % 9.8 11.5 H Neutrophils # 9.8 H 8.3 H Neutrophils % 79.0 H 75.3 Nucleated Red Blood Cells # 0.0 0.0 Nucleated Red Blood Cells % 0.0 0.0 Platelet Count 145 151 Potassium Level 4.6 4.3 Red Blood Count 3.73 L 3.59 L Red Cell Distribution Width 15.7 H 14.8 H Sodium Level 138 137 Total Bilirubin 0.5 Total Protein 6.0 L White Blood Count 12.4 H 11.0 H Activated Partial Thromboplast Time 40.7 H INR International Normalized Ratio 1.14 Prothrombin Time 14.6 H Prothrombin Time Ratio 1.1 Medications Medications Current Medications Pantoprazole 40 mg 40 mg DAILY@06 IV Last administered on 05/12/16 05:03; Admin Dose 40 MG; Start 05/10/16 at 06:00 Potassium Chloride/Dextrose/ Sod Cl (D5-1/2ns + KCl 20 Meq) 1,000 ml @ 120 mls/ hr Q8H20M IV Last administered on 05/12/16 11:36; Admin Dose 120 MLS/HR; Start 05/09/16 at 13:18 Naloxone HCl (Narcan) 0.2 mg Q2M PRN IV DECREASED REPIRATORY RATE; Start at 12:30 Ketorolac Tromethamine (Toradol) 30 mg Q6H PRN IV PAIN Last administered on 18:21; Admin Dose 30 MG; Start 05/10/16 at 20:00; Stop 05/13/16 at 19:59 Acetaminophen 650 mg 650 mg Q4H PRN [place] PAIN OR TEMP ABOVE 38C Last administered on 05/11/16 14:45; Admin Dose 650 MG; Start 05/11/16 at 14:30 Ceftriaxone Sodium (Rocephin) 50 ml @ 100 mls/hr Q24H IVPB Last administered on 05/12/16 18:20; Admin Dose 100 MLS/HR; Start 05/11/16 at 18:30 Morphine Sulfate (morphine) 2 MG/HR CONTINUOUS RATE 2... Q4PCA IV Last administered on 05/12/16 14:21; Admin Dose 30 MG; Start 05/12/16 at 07:00 LYNETTE YANEZ MD May 12, 2016 20:35
[2016-05-13] VITALS: BP 101/69; PULSE 82; RESP 18
[2016-05-13 04:30] VITALS: BP 96/62; PULSE 78; RESP 16
[2016-05-13] MEDS: D5W-0.45 NACL + KCL 20 MEQ 1,000 ML IV SCH ×3 (05:41→23:40)
[2016-05-13] MEDS: morphine 1 MG/ML 30 ML (PCA) IV SCH ×3 (05:51→21:18)
[2016-05-13] MEDS: PANTOPRAZOLE 40 MG INJ IV SCH (06:37)
[2016-05-13 08:02] VITALS: BP 114/66; RESP 19
[2016-05-13 09:23] LABS: ADD SCAN DIFF NO
[2016-05-13] MEDS: KETOROLAC 30 MG INJ IV PRN ×3 (09:23→21:49)
[2016-05-13 09:34] LABS: BASOPHILS % 0.3 % (0.0-2.0); EOSINOPHILS # 0.2 10^3/ul (0.0-0.5); EOSINOPHILS % 1.9 % (0.0-7.0); HEMATOCRIT 32.6 % (42.0-52.0); HEMOGLOBIN 10.7 g/dl (14.0-18.0); LYMPHOCYTES # 1.8 10^3/ul (0.8-2.9); LYMPHOCYTES % 18.7 % (15.0-51.0); MEAN CORPUSCULAR HEMOGLOBIN 30.4 pg (29.0-33.0); MEAN CORPUSCULAR HGB CONC 32.8 g/dl (32.0-37.0); MEAN CORPUSCULAR VOLUME 92.6 fl (82.0-101.0); MEAN PLATELET VOLUME 11.3 fl (7.4-10.4); MONOCYTE # 1.5 10^3/ul (0.3-0.9); MONOCYTES % 15.5 % (0.0-11.0); NEUTROPHIL # 5.9 10^3/ul (1.6-7.5); NEUTROPHILS % 63.2 % (39.0-77.0); PLATELET COUNT 156 10^3/UL (140-415); RED BLOOD COUNT 3.52 10^6/ul (4.70-6.10); RED CELL DISTRIBUTION WIDTH 14.8 % (11.5-14.5); WHITE BLOOD COUNT 9.4 10^3/ul (4.8-10.8)
[2016-05-13 09:52] LABS: POTASSIUM 4.5 mmol/L (3.5-5.1)
[2016-05-13 09:54] LABS: CREATININE 0.75 mg/dl (0.61-1.24)
[2016-05-13 09:55] LABS: INR 1.13; PROTIME 14.5 Sec (12.2-14.2); PT RATIO 1.1
[2016-05-13 09:56] LABS: PARTIAL THROMBOPLASTIN TIME 35.8 Sec (25.0-35.0)
[2016-05-13 10:17] LABS: CALCIUM 8.4 mg/dl (8.4-10.2)
--- NOTE | 2016-05-13 14:16 | PN ---
DATE: 05/13/2016 Postop day #4. SUBJECTIVE: No complaint. Insists to remove the NG tube. Sitting in the chair, but according to t he nurses has been walking around the floor. He states that he started passing a little bit of gas. No bowel movement. OBJECTIVE: VITAL SIGNS: Temperature 99.8, pulse rate 91, respirations 19, blood pressure 114/66, saturation 94 % on room air. LABORATORIES: Today WBC 9400, 63% segmented, hemoglobin 10.7, hematocrit 32.6. Chemistry: BUN, cr eatinine normal, sodium and potassium normal. ABDOMEN Soft, not distended, still some tenderness on deep pressure. EXTREMITIES: Legs no calf tenderness. No pitting edema. ASSESSMENT: Status post subtotal gastrectomy, day #4. The patient is stable except that he is runn ing a low grade fever. The patient is on antibiotic. PLAN: Continue current care. If he has a bowel movement by tomorrow, we will remove the NG tube to ocok and we will get a Gastrografin upper GI on Monday or on Monday, and if everything is okay. Will start feeding the patient on Monday. Dictated By: CANELO KRAMER MD PS/NTS Conf#: [id number] DID#: [id number]
[2016-05-13] MEDS: CEFTRIAXONE 1 GM/50 ML (PMX) 50 ML IVPB SCH (18:44)
[2016-05-13 20:04] VITALS: BP 109/68; RESP 20
--- NOTE | 2016-05-13 21:53 | PN ---
Date/Time of Note Date/Time of Note DATE: 05/13/16 TIME: 21:52 Assessment/Plan VTE Prophylaxis VTE Prophylaxis Intervention: other Lines/Catheters IV C[facility]ter Type (from [facility]): Saline Lock Urinary Cath still in place: Yes Reason Cath still needed: other (indicate) Assessment/Plan Chief Complaint/Hosp Course S/P SUB TOTAL GASTRECTOMY GASTRIC CANCER LEUCOCYTOSIS better PLAN PER SURGERY CK LABS ANTIBIOTIC PT/OT Problems: Subjective 24 Hr Interval Summary Respiratory: No shortness of breath Cardiovascular: no complaints Gastrointestinal: no complaints Exam/Review of Systems Vital Signs Vitals Vital Signs Date Time Temp Pulse Resp B/P Pulse Ox O2 Delivery O2 Flow Rate FiO2 05/13/16 20:04 99.3 84 20 109/68 94 05/13/16 04:30 Room Air 05/09/16 17:25 6.0 Intake and Output 05/12/16 05/12/16 05/13/16 15:00 23:00 07:00 Intake Total 1050 ml 990 ml Output Total 1000 ml 1225 ml Balance 50 ml -235 ml Exam Respiratory: clear to auscultation Cardiovascular: regular rate and rhythm Gastrointestinal: soft Extremities: normal pulses Neurological: CORRECTION OFFICER HEAD II-XII intact Results Result Diagram: 05/13/16 0910 05/13/16 0910 Results 24 hrs Laboratory Tests Test 05/13/16 09:10 Activated Partial Thromboplast Time 35.8 H Anion Gap 13 Basophils # 0.0 Basophils % 0.3 Blood Urea Nitrogen 13 Calcium Level 8.4 Carbon Dioxide Level 28 Chloride Level 103 Creatinine 0.75 Eosinophils # 0.2 Eosinophils % 1.9 Glucose Level 124 Hematocrit 32.6 L Hemoglobin 10.7 L INR International Normalized Ratio 1.13 Lymphocytes # 1.8 Lymphocytes % 18.7 Mean Corpuscular Hemoglobin 30.4 Mean Corpuscular Hemoglobin Concent 32.8 Mean Corpuscular Volume 92.6 Mean Platelet Volume 11.3 H Monocytes # 1.5 H Monocytes % 15.5 H Neutrophils # 5.9 Neutrophils % 63.2 Nucleated Red Blood Cells # 0.0 Nucleated Red Blood Cells % 0.0 Platelet Count 156 Potassium Level 4.5 Prothrombin Time 14.5 H Prothrombin Time Ratio 1.1 Red Blood Count 3.52 L Red Cell Distribution Width 14.8 H Sodium Level 139 White Blood Count 9.4 Medications Medications Current Medications Pantoprazole 40 mg 40 mg DAILY@06 IV Last administered on 05/13/16 06:37; Admin Dose 40 MG; Start 05/10/16 at 06:00 Potassium Chloride/Dextrose/ Sod Cl (D5-1/2ns + KCl 20 Meq) 1,000 ml @ 120 mls/ hr Q8H20M IV Last administered on 05/13/16 13:23; Admin Dose 120 MLS/HR; Start 05/09/16 at 13:18 Naloxone HCl (Narcan) 0.2 mg Q2M PRN IV DECREASED REPIRATORY RATE; Start at 12:30 Acetaminophen 650 mg 650 mg Q4H PRN [place] PAIN OR TEMP ABOVE 38C Last administered on 05/11/16 14:45; Admin Dose 650 MG; Start 05/11/16 at 14:30 Ceftriaxone Sodium (Rocephin) 50 ml @ 100 mls/hr Q24H IVPB Last administered on 05/13/16 18:44; Admin Dose 100 MLS/HR; Start 05/11/16 at 18:30 Morphine Sulfate (morphine) 2 MG/HR CONTINUOUS RATE 2... Q4PCA IV Last administered on 05/13/16 21:18; Admin Dose 30 MG; Start 05/12/16 at 07:00 Ketorolac Tromethamine (Toradol) 30 mg Q6H PRN IV PAIN; Start 05/13/16 at 21:30 ; Stop 05/16/16 at 21:29 LYNETTE YANEZ MD May 13, 2016 21:53
[2016-05-14] MEDS: D5W-0.45 NACL + KCL 20 MEQ 1,000 ML IV SCH ×3 (04:13→17:31)
[2016-05-14 05:07] LABS: ADD SCAN DIFF NO
[2016-05-14 05:12] LABS: BASOPHILS % 0.2 % (0.0-2.0); EOSINOPHILS # 0.4 10^3/ul (0.0-0.5); EOSINOPHILS % 4.1 % (0.0-7.0); HEMATOCRIT 31.5 % (42.0-52.0); HEMOGLOBIN 10.2 g/dl (14.0-18.0); LYMPHOCYTES # 1.7 10^3/ul (0.8-2.9); LYMPHOCYTES % 19.5 % (15.0-51.0); MEAN CORPUSCULAR HEMOGLOBIN 30.3 pg (29.0-33.0); MEAN CORPUSCULAR HGB CONC 32.4 g/dl (32.0-37.0); MEAN CORPUSCULAR VOLUME 93.5 fl (82.0-101.0); MEAN PLATELET VOLUME 11.5 fl (7.4-10.4); MONOCYTE # 1.3 10^3/ul (0.3-0.9); MONOCYTES % 14.8 % (0.0-11.0); NEUTROPHIL # 5.3 10^3/ul (1.6-7.5); NEUTROPHILS % 60.9 % (39.0-77.0); PLATELET COUNT 160 10^3/UL (140-415); RED BLOOD COUNT 3.37 10^6/ul (4.70-6.10); RED CELL DISTRIBUTION WIDTH 14.9 % (11.5-14.5); WHITE BLOOD COUNT 8.8 10^3/ul (4.8-10.8)
[2016-05-14] MEDS: KETOROLAC 30 MG INJ IV PRN ×4 (05:29→23:15)
[2016-05-14] MEDS: PANTOPRAZOLE 40 MG INJ IV SCH (05:29)
[2016-05-14] MEDS: morphine 1 MG/ML 30 ML (PCA) IV SCH ×2 (05:39→15:42)
[2016-05-14 07:14] VITALS: BP 105/64; RESP 15
--- NOTE | 2016-05-14 12:28 | PN ---
Date/Time of Note Date/Time of Note DATE: 05/14/16 TIME: 12:26 Assessment/Plan VTE Prophylaxis VTE Prophylaxis Intervention: other Lines/Catheters IV Catheter Type (from Nrs): Saline Lock Urinary Cath still in place: Yes Reason Cath still needed: other (indicate) Assessment/Plan Chief Complaint/Hosp Course S/P SUB TOTAL GASTRECTOMY GASTRIC CANCER LEUCOCYTOSIS better PLAN PER SURGERY CK LABS ANTIBIOTIC PT/OT PER NIA Problems: Subjective 24 Hr Interval Summary Cardiovascular: no complaints Gastrointestinal: no complaints Genitourinary: no complaints Exam/Review of Systems Vital Signs Vitals Vital Signs Date Time Temp Pulse Resp B/P Pulse Ox O2 Delivery O2 Flow Rate FiO2 05/14/16 09:00 18 05/14/16 07:14 98.5 74 105/64 95 05/13/16 04:30 Room Air Intake and Output 05/13/16 05/13/16 05/14/16 15:00 23:00 07:00 Intake Total 50 ml 1620 ml Output Total 150 ml 400 ml Balance -100 ml 1220 ml Exam Neck: supple Respiratory: clear to auscultation Cardiovascular: regular rate and rhythm Gastrointestinal: soft Results Result Diagram: 05/14/16 0422 05/13/16 0910 Results 24 hrs Laboratory Tests Test 05/14/16 04:22 Basophils # 0.0 Basophils % 0.2 Eosinophils # 0.4 Eosinophils % 4.1 Hematocrit 31.5 L Hemoglobin 10.2 L Lymphocytes # 1.7 Lymphocytes % 19.5 Mean Corpuscular Hemoglobin 30.3 Mean Corpuscular Hemoglobin Concent 32.4 Mean Corpuscular Volume 93.5 Mean Platelet Volume 11.5 H Monocytes # 1.3 H Monocytes % 14.8 H Neutrophils # 5.3 Neutrophils % 60.9 Nucleated Red Blood Cells # 0.0 Nucleated Red Blood Cells % 0.0 Platelet Count 160 Red Blood Count 3.37 L Red Cell Distribution Width 14.9 H White Blood Count 8.8 Medications Medications Current Medications Pantoprazole 40 mg 40 mg DAILY@06 IV Last administered on 05/14/16 05:29; Admin Dose 40 MG; Start 05/10/16 at 06:00 Potassium Chloride/Dextrose/ Sod Cl (D5-1/2ns + KCl 20 Meq) 1,000 ml @ 120 mls/ hr Q8H20M IV Last administered on 05/14/16 08:21; Admin Dose 120 MLS/HR; Start 05/09/16 at 13:18 Naloxone HCl (Narcan) 0.2 mg Q2M PRN IV DECREASED REPIRATORY RATE; Start at 12:30 Acetaminophen 650 mg 650 mg Q4H PRN [place] PAIN OR TEMP ABOVE 38C Last administered on 05/11/16 14:45; Admin Dose 650 MG; Start 05/11/16 at 14:30 Ceftriaxone Sodium (Rocephin) 50 ml @ 100 mls/hr Q24H IVPB Last administered on 05/13/16 18:44; Admin Dose 100 MLS/HR; Start 05/11/16 at 18:30 Morphine Sulfate (morphine) 2 MG/HR CONTINUOUS RATE 2... Q4PCA IV Last administered on 05/14/16 05:39; Admin Dose 30 MG; Start 05/12/16 at 07:00 Ketorolac Tromethamine (Toradol) 30 mg Q6H PRN IV PAIN Last administered on 11:56; Admin Dose 30 MG; Start 05/13/16 at 21:30; Stop 05/16/16 at 21:29 LYNETTE YANEZ MD May 14, 2016 12:28
--- NOTE | 2016-05-14 13:18 | PN ---
DATE: 05/14/2016 Postop day #5. SUBJECTIVE: No specific complaint. No bowel movement, passing gas. No fever per the patient. OBJECTIVE: VITAL SIGNS: Temperature 98.5 today, the patient is afebrile. Pulse rate 74, respirations 18, blood pressure 105/64, saturation 95% room air. LABORATORIES: WBC 8800, 60% segmented, hemoglobin 10.2, hematocrit 31.5. Chemistry within normal limits. Abdomen was soft. NG tube, 100 mL over 24 hours drainage. EXTREMITIES: Legs no calf tenderness. Patient is out of bed, walking in the hallways. ASSESSMENT: A 55-year-old gentleman status post subtotal gastrectomy for cancer of the stomach with Esthela-en-Y anastomosis, has been passing gas; was running fever, but today is afebrile. incision site is normal. No bleeding. Still has minimal drainage from the NG tube. Walking around in the hallway. Has been passing gas with no bowel movement. PLAN: We will get an upper GI Gastrografin on Monday and if everything is okay , we are going to remove the NG tube and start patient on a clear liquid diet on Monday. Dictated By: CANELO KRAMER MD PS/NTS Conf#: [id number] DID#: [id number] MTDD
[2016-05-14] MEDS: CEFTRIAXONE 1 GM/50 ML (PMX) 50 ML IVPB SCH (17:32)
[2016-05-14 19:29] VITALS: BP 124/71; PULSE 82; RESP 18
[2016-05-15] MEDS: D5W-0.45 NACL + KCL 20 MEQ 1,000 ML IV SCH ×3 (03:28→21:24)
[2016-05-15] MEDS: morphine 1 MG/ML 30 ML (PCA) IV SCH ×2 (03:35→14:38)
[2016-05-15 05:05] LABS: ADD SCAN DIFF NO
[2016-05-15 05:13] LABS: BASOPHILS % 0.3 % (0.0-2.0); EOSINOPHILS # 0.4 10^3/ul (0.0-0.5); HEMATOCRIT 30.7 % (42.0-52.0); LYMPHOCYTES % 24.7 % (15.0-51.0); MEAN CORPUSCULAR HEMOGLOBIN 29.9 pg (29.0-33.0); MEAN CORPUSCULAR HGB CONC 32.6 g/dl (32.0-37.0); MEAN CORPUSCULAR VOLUME 91.9 fl (82.0-101.0); MEAN PLATELET VOLUME 11.4 fl (7.4-10.4); MONOCYTE # 1.3 10^3/ul (0.3-0.9); MONOCYTES % 16.1 % (0.0-11.0); NEUTROPHIL # 4.3 10^3/ul (1.6-7.5); NEUTROPHILS % 53.4 % (39.0-77.0); PLATELET COUNT 174 10^3/UL (140-415); RED BLOOD COUNT 3.34 10^6/ul (4.70-6.10)
[2016-05-15 05:46] LABS: POTASSIUM 4.8 mmol/L (3.5-5.1)
[2016-05-15 05:48] LABS: CREATININE 0.69 mg/dl (0.61-1.24)
[2016-05-15 05:49] LABS: CALCIUM 8.5 mg/dl (8.4-10.2)
[2016-05-15] MEDS: PANTOPRAZOLE 40 MG INJ IV SCH (06:19)
[2016-05-15] MEDS: KETOROLAC 30 MG INJ IV PRN ×3 (06:23→17:57)
[2016-05-15 08:00] VITALS: BP 115/66; RESP 20
--- NOTE | 2016-05-15 13:36 | PN ---
Date/Time of Note Date/Time of Note DATE: 05/15/16 TIME: 13:34 Assessment/Plan VTE Prophylaxis VTE Prophylaxis Intervention: other Lines/Catheters IV Catheter Type (from Nrs): Saline Lock Urinary Cath still in place: Yes Reason Cath still needed: other (indicate) Assessment/Plan Chief Complaint/Hosp Course S/P SUB TOTAL GASTRECTOMY GASTRIC CANCER LEUCOCYTOSIS better PLAN PER SURGERY CK LABS ANTIBIOTIC PT/OT PER NIA Problems: Subjective 24 Hr Interval Summary Cardiovascular: no complaints Gastrointestinal: pain ( mild) Exam/Review of Systems Vital Signs Vitals Vital Signs Date Time Temp Pulse Resp B/P Pulse Ox O2 Delivery O2 Flow Rate FiO2 05/15/16 08:00 98.5 76 20 115/66 96 05/14/16 19:29 Room Air Intake and Output 05/14/16 05/14/16 05/15/16 15:00 23:00 07:00 Intake Total 1250 ml 1440 ml Output Total 515 ml 1460 ml Balance 735 ml -20 ml Exam Cardiovascular: regular rate and rhythm Gastrointestinal: soft Musculoskeletal: nl extremities to inspection Extremities: normal pulses Neurological: SKI MAKER II-XII intact Results Result Diagram: 05/15/16 0420 05/15/16 0420 Results 24 hrs Laboratory Tests Test 05/15/16 04:20 Anion Gap 13 Basophils # 0.0 Basophils % 0.3 Blood Urea Nitrogen 14 Calcium Level 8.5 Carbon Dioxide Level 26 Chloride Level 107 Creatinine 0.69 Eosinophils # 0.4 Eosinophils % 5.0 Glucose Level 104 Hematocrit 30.7 L Hemoglobin 10.0 L Lymphocytes # 2.0 Lymphocytes % 24.7 Mean Corpuscular Hemoglobin 29.9 Mean Corpuscular Hemoglobin Concent 32.6 Mean Corpuscular Volume 91.9 Mean Platelet Volume 11.4 H Monocytes # 1.3 H Monocytes % 16.1 H Neutrophils # 4.3 Neutrophils % 53.4 Nucleated Red Blood Cells # 0.0 Nucleated Red Blood Cells % 0.0 Platelet Count 174 Potassium Level 4.8 Red Blood Count 3.34 L Red Cell Distribution Width 15.0 H Sodium Level 141 White Blood Count 8.0 Medications Medications Current Medications Pantoprazole 40 mg 40 mg DAILY@06 IV Last administered on 05/15/16t 06:19; Admin Dose 40 MG; Start 05/10/16 at 06:00 Potassium Chloride/Dextrose/ Sod Cl (D5-1/2ns + KCl 20 Meq) 1,000 ml @ 120 mls/ hr Q8H20M IV Last administered on 05/15/16 12:23; Admin Dose 120 MLS/HR; Start 05/09/16 at 13:18 Naloxone HCl (Narcan) 0.2 mg Q2M PRN IV DECREASED REPIRATORY RATE; Start at 12:30 Acetaminophen 650 mg 650 mg Q4H PRN [place] PAIN OR TEMP ABOVE 38C Last administered on 05/11/16 14:45; Admin Dose 650 MG; Start 05/11/16 at 14:30 Ceftriaxone Sodium (Rocephin) 50 ml @ 100 mls/hr Q24H IVPB Last administered on 05/14/16 17:32; Admin Dose 100 MLS/HR; Start 05/11/16 at 18:30 Morphine Sulfate (morphine) 2 MG/HR CONTINUOUS RATE 2... Q4PCA IV Last administered on 05/15/16 03:35; Admin Dose 30 MG; Start 05/12/16 at 07:00 Ketorolac Tromethamine (Toradol) 30 mg Q6H PRN IV PAIN Last administered on 12:23; Admin Dose 30 MG; Start 05/13/16 at 21:30; Stop 05/16/16 at 21:29 LYNETTE YANEZ MD May 15, 2016 13:35
--- NOTE | 2016-05-15 16:22 | PN ---
DATE: 05/15/2016 Postop day #6 SUBJECTIVE: No complaint. OBJECTIVE: VITAL SIGNS: 98.5, 76, 20, 115/66, 96 saturation. LABORATORY DATA: WBC 8000 with 53, % neutrophils, hemoglobin 10, hematocrit 30.7. GENERAL: Has been passing a lot of gas. No bowel movement. NG tube draining, minimal, like about 40 mL almost clear liquid. ABDOMEN: Soft. EXTREMITIES: No calf tenderness. ASSESSMENT: Postop day #6; a 55-year-old gentleman with subtotal gastrectomy for cancer of the stom ach, has been doing fine and we are waiting for Gastrografin upper GI tomorrow, and following that i f everything is okay, we will remove the NG tube and start feeding the patient clear liquids and gra dually advancing to full and soft diet. Dictated By: CANELO KRAMER MD PS/NTS Conf#: [id number] DID#: [id number]
[2016-05-15] MEDS: CEFTRIAXONE 1 GM/50 ML (PMX) 50 ML IVPB SCH (17:57)
[2016-05-15 19:33] VITALS: BP 121/72; RESP 21
[2016-05-15 19:38] VITALS: BP 108/61; RESP 20
[2016-05-16] MEDS: morphine 1 MG/ML 30 ML (PCA) IV SCH ×2 (00:14→10:21)
[2016-05-16] MEDS: PANTOPRAZOLE 40 MG INJ IV SCH (05:18)
[2016-05-16] MEDS: KETOROLAC 30 MG INJ IV PRN ×3 (05:26→20:16)
[2016-05-16] MEDS: D5W-0.45 NACL + KCL 20 MEQ 1,000 ML IV SCH ×5 (06:35→22:53)
[2016-05-16 08:22] VITALS: BP 111/68; RESP 16
[2016-05-16] MEDS ORDERED: DIATR MEGLU/DIATRIZOATE SODIUM 120 ML BTL ONE (08:58)
--- NOTE | 2016-05-16 14:33 | RADRPT ---
PROCEDURE: Upper GI series. CLINICAL INDICATION: Abdominal pain. Postop distal gastrectomy. TECHNIQUE: Gastrographin was administered orally and several spot and overhead radiographs were ob tained. 0.1 minutes of fluoroscopy time was used. COMPARISON: No prior study is available for comparison. FINDINGS: There is a nasogastric tube with the tip in the stomach. Midline vertical skin jana are noted. Surgical jana are present in the abdomen from the gastric surgery. Esophageal motility is normal. There is no aspiration. There is no esophageal mass, ulcer, or stricture. There is no gastroesophageal reflux. The visualized portion of the stomach is normal. There has been partial gastrectomy with only the g astric fundus remaining. The anastomoses with the proximal small bowel appears satisfactory with no evidence of leak or obstruction. IMPRESSION: 1. Nasogastric tube tip in the stomach. 2. Satisfactory postoperative appearance with partial gastrectomy and patent anastomoses. There is no leak or obstruction. RPTAT: QQ .Alberto Benitez MD, Date Time Electronically viewed and signed by .Alberto Benitez MD, on 05/16/2016 14:32 .R/
--- NOTE | 2016-05-16 16:52 | PN ---
Date/Time of Note Date/Time of Note DATE: 05/16/16 TIME: 16:50 Assessment/Plan VTE Prophylaxis VTE Prophylaxis Intervention: other Lines/Catheters IV Catheter Type (from Nrs): Saline Lock Urinary Cath still in place: Yes Reason Cath still needed: other (indicate) Assessment/Plan Chief Complaint/Hosp Course S/P SUB TOTAL GASTRECTOMY GASTRIC CANCER LEUCOCYTOSIS better PLAN PER SURGERY CK LABS ANTIBIOTIC PT/OT PER NIA UGI NEG Problems: Subjective 24 Hr Interval Summary Gastrointestinal: no complaints, No blood, No diarrhea, No pain Exam/Review of Systems Vital Signs Vitals Vital Signs Date Time Temp Pulse Resp B/P Pulse Ox O2 Delivery O2 Flow Rate FiO2 05/16/16 08:22 98.1 60 16 111/68 96 05/14/16 19:29 Room Air Intake and Output 05/15/16 05/15/16 05/16/16 15:00 23:00 07:00 Intake Total 1450 ml 1000 ml Output Total 800 ml Balance 1450 ml 200 ml Exam Respiratory: clear to auscultation Cardiovascular: regular rate and rhythm Gastrointestinal: bowel sounds (+), soft Results Result Diagram: 05/15/16 0420 05/15/16 0420 Medications Medications Current Medications Pantoprazole 40 mg 40 mg DAILY@06 IV Last administered on 05/16/16 05:18; Admin Dose 40 MG; Start 05/10/16 at 06:00 Potassium Chloride/Dextrose/ Sod Cl (D5-1/2ns + KCl 20 Meq) 1,000 ml @ 120 mls/ hr Q8H20M IV Last administered on 05/16/16 06:35; Admin Dose 120 MLS/HR; Start 05/09/16 at 13:18 Naloxone HCl (Narcan) 0.2 mg Q2M PRN IV DECREASED REPIRATORY RATE; Start at 12:30 Acetaminophen 650 mg 650 mg Q4H PRN [place] PAIN OR TEMP ABOVE 38C Last administered on 05/11/16 14:45; Admin Dose 650 MG; Start 05/11/16 at 14:30 Ceftriaxone Sodium (Rocephin) 50 ml @ 100 mls/hr Q24H IVPB Last administered on 05/15/16 17:57; Admin Dose 100 MLS/HR; Start 05/11/16 at 18:30 Morphine Sulfate (morphine) 2 MG/HR CONTINUOUS RATE 2... Q4PCA IV Last administered on 05/16/16 10:21; Admin Dose 30 MG; Start 05/12/16 at 07:00 Ketorolac Tromethamine (Toradol) 30 mg Q6H PRN IV PAIN Last administered on 11:39; Admin Dose 30 MG; Start 05/13/16 at 21:30; Stop 05/16/16 at 21:29 LYNETTE YANEZ MD May 16, 2016 16:52
--- NOTE | 2016-05-16 17:22 | PN ---
DATE: 05/16/2016 SUBJECTIVE: Feels much better. No complaints. OBJECTIVE: VITAL SIGNS: Stable. No fever. ABDOMEN: Soft. NG tube minimal drainage. I ordered an upper GI with Gastrografin today which was done and I reviewed the results with Dr. Kevin rutherford. There is no evidence of leak per Dr. Benitez and easily empties the bladder and remaining bladder g oes to the jejunum. ASSESSMENT: Postoperative day #7, subtotal gastrectomy with Esthela-en-Y anastomosis. Patient had an upper GI today, which does not show any evidence of leak. Therefore, we are going to remove the NG tube and start the patient on clear liquids tomorrow, Monday. Hopefully, we will advance diet to f ull liquid if patient tolerates. PLAN: Discharge on Monday. Dictated By: CANELO KRAMER MD PS/NTS Conf#: [id number] DID#: [id number]
[2016-05-16] MEDS: CEFTRIAXONE 1 GM/50 ML (PMX) 50 ML IVPB SCH (18:42)
[2016-05-16 20:40] VITALS: BP 108/61; RESP 20
[2016-05-16] MEDS: ACETAMINOPHEN 650 MG SUPP PR PRN (20:41)
[2016-05-17] MEDS: D5W-0.45 NACL + KCL 20 MEQ 1,000 ML IV SCH ×3 (02:15→23:33)
[2016-05-17] MEDS: PANTOPRAZOLE 40 MG INJ IV SCH (06:23)
[2016-05-17] MEDS: morphine 1 MG/ML 30 ML (PCA) IV SCH (07:44)
[2016-05-17 08:21] VITALS: BP 108/59; RESP 18
[2016-05-17] MEDS ORDERED: morphine 2 MG INJ IV PRN (18:00)
[2016-05-17] MEDS: HYDROCODONE/APAP (5/325) TAB PO PRN (18:02)
[2016-05-17] MEDS: CEFTRIAXONE 1 GM/50 ML (PMX) 50 ML IVPB SCH (18:13)
--- NOTE | 2016-05-17 18:48 | PN ---
DATE: 05/17/2016 Postop day #7 SUBJECTIVE: Does not have any specific complaints. OBJECTIVE: VITAL SIGNS: 98.2, 70 ,18, 108/59 blood pressure, saturation 99% on room air. ABDOMEN: Soft. Dressing change, wound is clean. ASSESSMENT: Patient has passed gas and has not had bowel movement. Has been on full liquid diet as of today morning. He is tolerating a full liquid diet. 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 W e are going to discontinue it today right now And continue patient on full liquid diet and if tolera rtuhann and no vomiting, we can advance her diet to soft diet tomorrow morning, if the patient tolerate s and ____pain can become under control with oral medications, the patient can be discharged tomorr ow morning. PLAN: I am going to start the patient on p.o. Russell 5/325 mg q.4h. p.r.n. and also 2 mg of morphin e IV q.4h. p.r.n. for severe pain. Dictated By: CANELO SCHRADER/PRATIMA Conf#: [id number] DID#: [id number]
[2016-05-17 20:03] VITALS: BP 118/68; PULSE 70; RESP 18
[2016-05-17 20:18] VITALS: BP 104/64; RESP 20
--- NOTE | 2016-05-17 22:50 | PN ---
Date/Time of Note Date/Time of Note DATE: 05/17/16 TIME: 22:49 Assessment/Plan VTE Prophylaxis VTE Prophylaxis Intervention: other Lines/Catheters [facility] Saline Lock Urinary Cath still in place: No Assessment/Plan Chief Complaint/Hosp Course S/P SUB TOTAL GASTRECTOMY GASTRIC CANCER LEUCOCYTOSIS better PLAN PER SURGERY CK LABS ANTIBIOTIC PT/OT PER NIA UGI NEG po diet Problems: Subjective 24 Hr Interval Summary Respiratory: no complaints Cardiovascular: no complaints Gastrointestinal: No constipation, No diarrhea, No pain Exam/Review of Systems Vital Signs Vitals Vital Signs Date Time Temp Pulse Resp B/P Pulse Ox O2 Delivery O2 Flow Rate FiO2 05/17/16 20:18 98.3 69 20 104/64 96 05/17/16 20:03 Room Air Intake and Output 05/16/16 05/16/16 05/17/16 15:00 23:00 07:00 Intake Total 1710 ml 1200 ml Output Total 600 ml 600 ml Balance 1110 ml 600 ml Exam Respiratory: clear to auscultation Cardiovascular: regular rate and rhythm Gastrointestinal: bowel sounds (+), soft Extremities: normal pulses Results Result Diagram: 05/15/1641905/15/16 042 Medications Medications Current Medications Pantoprazole 40 mg 40 mg DAILY@06 IV Last administered on 05/17/16 06:23; Admin Dose 40 MG; Start 05/10/16 at 06:00 Potassium Chloride/Dextrose/ Sod Cl (D5-1/2ns + KCl 20 Meq) 1,000 ml @ 120 mls/ hr Q8H20M IV Last administered on 05/17/16 11:22; Admin Dose 120 MLS/HR; Start 05/09/16 at 13:18 Naloxone HCl (Narcan) 0.2 mg Q2M PRN IV DECREASED REPIRATORY RATE; Start at 12:30 Acetaminophen 650 mg 650 mg Q4H PRN [place] PAIN OR TEMP ABOVE 38C Last administered on 05/16/16 20:41; Admin Dose 650 MG; Start 05/11/16 at 14:30 Ceftriaxone Sodium (Rocephin) 50 ml @ 100 mls/hr Q24H IVPB Last administered on 05/17/16 18:13; Admin Dose 100 MLS/HR; Start 05/11/16 at 18:30 Acetaminophen/ Hydrocodone Bitart ([place] (5/325)) 1 tab Q4H PRN PO PAIN Last administered on 05/17/16 18:02; Admin Dose 1 TAB; Start 05/17/16 at 18:00 Morphine Sulfate (morphine) 2 mg Q4H PRN IV SEVERE PAIN LEVEL 7-10; Start 05/17 at 18:00 LYNETTE YANEZ MD May 17, 2016 22:50
[2016-05-18] MEDS: HYDROCODONE/APAP (5/325) TAB PO PRN ×3 (03:52→12:00)
[2016-05-18] MEDS: PANTOPRAZOLE 40 MG INJ IV SCH (05:41)
[2016-05-18 07:47] VITALS: BP 118/74; RESP 18
[2016-05-18] MEDS ORDERED: ONDANSETRON 4 MG INJ IV PRN (10:00)
[2016-05-18] MEDS: D5W-0.45 NACL + KCL 20 MEQ 1,000 ML IV SCH (10:01)
--- NOTE | 2016-05-18 11:14 | PDOCDIS ---
Discharge Instructions CONDITION Patient Condition: Fair HOME CARE INSTRUCTIONS: Special Diet: N/A ACTIVITY: Activity Restrictions: Slowly Increase Activity FOLLOW UP/APPOINTMENTS Appointments see own pcp [address] moore 1 wk LYNETTE YANEZ MD May 18, 2016 11:14
[2016-05-18] MEDS ORDERED: HYDR-3498 PO (11:15)
[2016-05-18] MEDS ORDERED: PANT40TA3 PO (11:15)
[2016-05-18] MEDS ORDERED: MYL80 PO (11:15)
--- NOTE | 2016-05-18 12:40 | PN ---
DATE: 05/18/2016 Postop day #8. SUBJECTIVE: No complaint, has been comfortable with one Frost every 4 hours. No morphine needed. Bowel movement is positive, has been tolerating diet. OBJECTIVE: VITAL SIGNS: Stable. ABDOMEN: Flat, soft, wound is clean. ASSESSMENT: Patient is status post subtotal gastrectomy for cancer. Patient is doing fine, has yelena erated diet. Gastrografin there is no leak, has had bowel movement. PLAN: The patient can be discharged today. Follow up by Dr. Mixon on 05/25/2016. Dictated By: CANELO KRAMER MD PS/NTS Conf#: [id number] DID#: [id number]
[2016-05-19] MEDS ORDERED: PANTOPRAZOLE (EC) 40 MG TAB PO SCH (06:00)
--- NOTE | 2016-05-19 17:44 | QN ---
Documentation Comment [id number] LYNETTE YANEZ MD May 19, 2016 17:44
--- NOTE | 2016-05-19 17:54 | DS ---
DATE OF ADMISSION: 05/09/2016 DATE OF DISCHARGE: 05/18/2016 HOSPITAL COURSE: The patient was admitted with obstructing prepyloric gastric cancer, underwent sta tus post subtotal gastrectomy. The patient was given IV fluid, antibiotic, noted to have leukocytos is and fever, responded very well to IV antibiotic. Patient also required pain medicine, NG tube weiss ctioning and Gastrografin upper GI test was done. Patient was started on p.o. liquid diet. The pat ient's laboratory data were monitored very closely. The patient eventually was cleared to be discha rged home. DISCHARGE DIAGNOSES: Status post subtotal gastrectomy, anemia, status post leukocytosis, status post systemic inflammatory response syndrome, anemia. DISCHARGE MEDICATIONS: Were given. Patient to continue: 1. Hydrocodone. 2. Protonix. 3. Simethicone. FOLLOWUP: With Dr. Mixon, Dr. Rose and patient's own primary care doctor as an outpatient. Dictated By: LYNETTE YANEZ MD BS/NTS Conf#: [id number] DID#: [id number]
== END 2016-05-18 13:50 | disposition home or self-care (01) | DRG 327 ==
LOC: REC 10:09 → MS1 18:40
PROVIDERS: ADMIT Surgery Surgical Oncology; ATTEND Surgery Surgical Oncology
PROC: 0DB60ZZ Excision of Stomach, Open Approach (ICD-10-PCS; principal; 2016-05-09 12:00)
DX: C16.4 Malignant neoplasm of pylorus (principal); R65.10 Systemic inflammatory response syndrome (SIRS) of non-infectious origin without acute organ dysfunction; D72.829 Elevated white blood cell count, unspecified; K31.89 Other diseases of stomach and duodenum; D64.9 Anemia, unspecified
CPT/HCPCS: 71010; 74240; 80048; 80053; 81001; 81003; 85025; 85610; 85730; 86850; 86900; 86901; 87086; 88307; 88313; 90686; 93005; C9113; J0295; J0330; J0360; J0690; J0696; J1100; J1170; J1200; J1644; J1885; J2175; J2250; J2270; J2405; J2710; J2795; J3010; J3480

== ENCOUNTER 2016-06-16 07:45 | Day surgery (SDC) | payer OTHER ==
[2016-06-16] VITALS (24 sets, daily range): BP systolic 87–122; BP diastolic 53–69; PULSE 63–89; RESP 12–22; Ht 172.7 cm; Wt 61.5 kg
[~2016-06-16] VITALS: Ht 172.7 cm; Wt 61.5 kg
[~2016-06-16 07:45] MED LIST changes: +HYDR-3498 PO; +MYL80 PO; -NEXIUM; +PANT40TA3 PO
[2016-06-16] MEDS ORDERED: POLYMYXIN/BACITRACIN 1L IRRIG IRR SCH (08:30)
[2016-06-16] MEDS ORDERED: HEPARIN 1000 UNITS/ML 10 ML INJ ONE (08:51)
[2016-06-16] MEDS ORDERED: LIDOCAINE 1%/EPI 30 ML INJ INJ SCH (09:00)
[2016-06-16] MEDS ORDERED: MIDAZOLAM 1 MG/ML 2 ML INJ ONE (09:12)
[2016-06-16] MEDS ORDERED: CEFAZOLIN 1 GM/50 ML (PMX) 50 ML IVPB ONE (09:12)
[2016-06-16] MEDS ORDERED: FENTAnyl 50 MCG/ML VIAL ONE ×2 (09:13→10:42)
--- NOTE | 2016-06-16 13:05 | RADRPT ---
PROCEDURE: ULTRASOUND-GUIDED VASCULAR ACCESS CLINICAL INDICATION: Port-A-Cath placement TECHNIQUE: Informed consent was obtained from the patient after a discussion of the risks, benefit s, and alternatives of the procedure. Risks include, but are not limited to bleeding and infection. The right internal jugular vein was found to be patent and compressible with bauer scale and power D oppler. A picture of it was saved to the PACS. 1% lidocaine was utilized for anesthesia. Under di rect ultrasound guidance, a 21-gauge needle was advanced into the right internal jugular vein. A wi re was advanced through the micropuncture needle. The micropuncture needle was then removed over th e wire and a 5-Kittitian catheter was advanced over the wire. COMPARISON: None. FINDINGS: Patent and compressible right internal jugular vein. IMPRESSION: Ultrasound guided vascular access for placement of a Port-A-Cath. RPTAT: EE Physician Nakul Date Time Electronically viewed and signed by Physician Nakul on 06/16/2016 13:05 /
--- NOTE | 2016-06-16 13:05 | RADRPT ---
PROCEDURE: RIGHT INTERNAL JUGULAR PORT PLACEMENT CLINICAL INDICATION: IV access for chemotherapy FLUOROSCOPY TIME: 0.1 minute TECHNIQUE: The procedure, its potential risks, benefits and alternatives were explained. Risks, including but n ot limited to pain, bleeding, infection, thrombosis, embolism and arrhythmia were discussed and und erstood. Following this discussion with the patient, informed consent was obtained. The right internal jugular vein was imaged with ultrasound and was shown to be compressible, with no evidence of thrombus. An image of this vein was obtained and saved to the PACS system. The neck and chest wall were scrubbed, draped and prepped in a sterile manner. The procedure was ca rried out under aseptic conditions. 1% lidocaine with epinephrine was utilized for local anesthesia . Following the standard prep, and under ultrasound guidance, the right internal jugular vein was punctured using anterior single wall micropuncture technique, and a micropuncture catheter was adva nced into the superior vena cava. Following this, an appropriate site on the anterior chest wall w as selected for port placement. The skin over the port placement site was then anesthetized. The s kin was then incised. Deep anesthesia was then given. Using blunt dissection technique, a pocket w as created in the subcutaneous soft tissue. Following this, a tract connecting the port pocket with the neck entry site was anesthetized. A 6 Cameroonian catheter was then pulled through the subcutaneous tract. Exchange of the micropuncture catheter was then done for a peel-away sheath. The catheter was then advanced through the sheath, the sheath was removed and the catheter was positioned with it s tip at the cavoatrial junction. Fluoroscopy was utilized to guide placement of the catheter. An im age of its final position was saved to the PACS system. The proximal end of the catheter was then tr immed and attached to a power injectable dual lumen chest wall port. The catheter and the port were then heparinized. The port was then placed within the pocket blank. The wound was then irrigated, and was dried. The wound was then closed using interrupted 3-0 Vicryl sutures, and a running subde rmal 4-0 Vicryl suture. Then over this, Dermabond was applied. A 4-0 Vicryl suture was placed to c lose the neck entry site, over which Dermabond was applied. The patient tolerated the procedure well . COMPARISON: none FINDINGS: as above. IMPRESSION: Placement of power injectable single lumen right chest wall port, as above. The catheter is ready for use. RPTAT: EE Apolinar Sorto, Physician Date Time Electronically viewed and signed by Apolinar Sorto, Physician on 06/16/2016 13:05 /
== END 2016-06-16 13:10 | disposition home or self-care (01) ==
LOC: SDS 07:45
PROVIDERS: ATTEND Internal Medicine Hematology & Oncology
DX: C16.9 Malignant neoplasm of stomach, unspecified (principal)
CPT/HCPCS: 36561; 76942; C1788; J0690; J1644; J2250; J3010; Z7610

== ENCOUNTER → 2016-07-25 | Outpatient (CLI) | payer OTHER ==
--- NOTE | 2016-07-25 15:53 | RADRPT ---
Echocardiogram Report Patient Name: RENNY GRACE Gender: Male Date: 1960 Study Date: 25-Jul-2016 Photonics Engineer: Neelam Beckford RDCS Location: EKG Ref. Physician: KISHORE JACKSON Quality: Good Procedures: Transthoracic echocardiogram with complete 2D, M-Mode, and doppler examination. Indications: Chemotherapy. 2D/M Mode Doppler Measurement Value Normal Ranges Measurement Value Normal Ranges LVIDd 2D 5.1 3.5 - 5.6 cm AV Peak Sawyer 1.1 m/sec LVIDs 2D 3.0 2.1 - 4.1 cm AV Peak PG 5.0 mmHg FS 2D 41.6 % LVOT Peak Sawyer 0.9 m/sec LVPWd 2D 0.8 0.6 - 1.1 cm LVOT Peak PG 3.0 mmHg IVSd 2D 0.8 0.6 - 1.1 cm MV E Peak Sawyer 0.8 m/sec IVS/LVPW 2D 1.1 MV A Peak Sawyer 0.7 m/sec AoR Diam 2D 2.8 2.0 - 3.7 cm MV E/A 1.2 LA/Ao 2D 1 0 - 1 MV Decel Time 113 msec EDV 2D 130.0 cm3 MV E/A 1.2 ESV 2D 25.9 cm3 TR Peak Sawyer 2.4 m/sec LA Dimen 2D 2.9 2.3 - 4.0 cm TR Peak PG 24.0 mmHg RVSP 27.0 mmHg Findings Left Ventricle: Normal left ventricular systolic function. Normal left ventricular cavity size. Normal left ventricular wall thickness. Ejection fraction is visually estimated at 55 - 60 %. Tissue Doppler/Mitral Doppler indices are within normal limits. Right Ventricle: Normal right ventricular size. Normal right ventricular systolic function. Left Atrium: The left atrium is normal in size. Right Atrium: The right atrium is normal in size. Mitral Valve: Mitral valve leaflets appear mildly thickened. Mild mitral annular calcification. Trace mitral regurgitation. Aortic Valve: Normal appearance of the aortic valve. No significant aortic stenosis or insufficiency. Tricuspid Valve: Normal appearance of the tricuspid valve. Estimated peak PA systolic pressure 27 mmHg. There is mild tricuspid regurgitation. Pulmonic Valve: Normal pulmonic valve appearance. Pericardium: Normal pericardium with no significant pericardial effusion. Aorta: Normal aortic root. IVC: Normal size and normal respiratory collapse consistent with normal right atrial pressure. Conclusions 1.Normal left ventricular systolic function. Normal left ventricular cavity size. Normal left ventricular wall thickness. Ejection fraction is visually estimated at 55 - 60 %. Tissue Doppler/Mitral Doppler indices are within normal limits. 2.Mitral valve leaflets appear mildly thickened. Mild mitral annular calcification. Trace mitral regurgitation. 3.Normal appearance of the aortic valve. No significant aortic stenosis or insufficiency. 4.Normal appearance of the tricuspid valve. Estimated peak PA systolic pressure 27 mmHg. There is mild tricuspid regurgitation. Electronically Signed By: Tan Saldana 25-Jul-2016 15:53:00 -0700 Patient Name: RENNY GRACE Study Date: 25-Jul-2016 [id number]
== END | disposition home or self-care (01) ==
LOC: EKG 13:53
PROVIDERS: ATTEND Internal Medicine Hematology & Oncology
DX: Z79.899 Other long term (current) drug therapy (principal)
CPT/HCPCS: 93306